=== PATIENT | male | born 1970 | race Caucasian/White ===

== ENCOUNTER 2016-04-22 08:55 | Observation (INO) | payer OTHER ==
[~2016-04-22] VITALS: Ht 208.3 cm; Wt 127.0 kg
[~2016-04-22 08:55] MED LIST: ALBUTEROL0.09 MG/A1 INH; AMOX PO; AZITHROMYCIN250 MG PO; DULOXETINE HYDR30 MG PO; K CLAV PO; KEFLEX500 MG PO; LYRICA75 MG PO; MEDROL4 M2 PO; PREDNISONE 20MG20 MG PO; PREDNISONE10 MG PO; TESSALON PERLE100 M1 PO; VENTOLIN HFA18 GM INH; ZOLPIDEM TARTRA10 MG
--- NOTE | 2016-04-22 09:04 | NUR ---
45 Y/O MALE BIBA FROM HOME C/O "SEVERE" MID ABDOMINAL PAIN SINCE APPROX 2200 LAST NIGHT. PT DENIES N/V/D BUT FATHER STATES HE KNEW SOMETHING WAS WRONG WHEN PT PATIENT DID NOT WANT DESSERT LAST NIGHT OR COFFEE THIS AM. PT WITH HX CEREBRAL ATAXIA. INTERMITTENTLY YELLING OUT ON ARRIVAL TO ED. STATES PAIN IS IN AREA OF UMBILICUS. MEDICAL STUDENT OVER TO [facility].
--- NOTE | 2016-04-22 09:15 | NUR ---
MED STUDENT TO BEDSIDE TO EVAL
--- NOTE | 2016-04-22 09:32 | ED GI/GU/ABDOMINAL COMPLAINT ---
History of Present Illness General Chief Complaint: Abdominal Pain/Flank Pain Stated Complaint: SEVERE ABD PAIN Source: patient, family, old records, EMS Exam Limitations: no limitations Vital Signs & Intake/Output Vital Signs & Intake/Output Vital Signs Date Time Temp Pulse Resp B/P Pulse O2 O2 Flow FiO2 Ox Delivery Rate 04/22 1748 97.9 118 20 147/79 96 Room Air 04/22 1701 98.9 100 20 137/72 98 Room Air 04/22 1640 114 20 142/69 95 Room Air 04/22 1517 99 Room Air 04/22 1506 98.9 110 22 149/70 100 Room Air 04/22 1055 98.9 102 18 140/76 100 Room Air 04/22 1006 99 Room Air 04/22 0900 97.1 114 16 135/72 97 Room Air Allergies Coded Allergies: NO KNOWN ALLERGIES (06/02/13) Reconcile Medications Pregabalin (Lyrica) 75 MG CAPSULE 1 CAP PO BID NERVE PAIN (Reported) Vitamin E (Dl,Tocopheryl Acet) (Vitamin E) (Unknown Strength) CAPSULE (Unknown Dose) PO DAILY SUPPLEMENT (Reported) Zolpidem Tartrate (Zolpidem Tartrate ER) 12.5 MG TAB.MPHASE 1 TAB PO QHS SLEEP (Reported) Triage Note: 45 Y/O MALE BIBA FROM HOME C/O "SEVERE" MID ABDOMINAL PAIN SINCE APPROX 2200 LAST NIGHT. PT DENIES N/V/D BUT FATHER STATES HE KNEW SOMETHING WAS WRONG WHEN PT PATIENT DID NOT WANT DESSERT LAST NIGHT OR COFFEE THIS AM. PT WITH HX CEREBRAL ATAXIA. INTERMITTENTLY YELLING OUT ON ARRIVAL TO ED. STATES PAIN IS IN AREA OF UMBILICUS. MEDICAL STUDENT OVER TO EVAL. Triage Nurses Notes Reviewed? yes Onset: Evening Duration: hour(s):, constant, continues in ED Timing: recent history Quality/Severity: aching, severe Location: periumbilical Radiation: no radiation Activities at Onset: none Prior Abdominal Problems: none Past Sexual History: Unobtainable at this time Modifying Factors: Worsens With: movement, palpation. Associated Symptoms: abdominal pain HPI: 10 hours prior to admission patient complains of progressive periumbilical pain moderate to severe nonradiating associated with decreased appetite not improved with ibuprofen. He denies fever chills nausea vomiting diarrhea chest pain cough shortness of breath headache dysuria rash bleeding. Past History Travel History Traveled to [place] past 21 day No Medical History Any Pertinent Medical History? see below for history Neurological: CEREBRAL ATAXIA EENT: NONE Cardiovascular: NONE Respiratory: NONE Gastrointestinal: NONE Hepatic: NONE Renal: NONE Musculoskeletal: MUSCULAR/FACIAL SPASMS Psychiatric: anxiety, depression Endocrine: NONE Blood Disorders: NONE Cancer(s): NONE PICK OUT HAND/Reproductive: NONE History of MRSA: No History of VRE: No History of CDIFF: No Tetanus Vaccine: 07/18/15 Surgical History Surgical History: non-contributory Psychosocial History Who do you live with Mother Services at Home None What is your primary language Greek Tobacco Use: Current Not Daily ETOH Use: denies use Illicit Drug Use: denies illicit drug use Family History Family History, If Any: Relation not specified for: No pertinent family history Hx Contributory? No Review of Systems Review of Systems Constitutional: Reports: see HPI, diaphoresis. EENTM: Reports: no symptoms. Respiratory: Reports: no symptoms. Cardiovascular: Reports: no symptoms. GI: Reports: see HPI, abdominal pain. Genitourinary: Reports: no symptoms. Musculoskeletal: Reports: no symptoms. Skin: Reports: no symptoms. Neurological/Psychological: Reports: no symptoms. Hematologic/Endocrine: Reports: no symptoms. Immunologic/Allergic: Reports: no symptoms. All Other Systems: Reviewed and Negative Physical Exam Physical Exam General Appearance: well developed/nourished, alert, awake, anxious, severe distress Head: atraumatic, normal appearance Eyes: Bilateral: normal appearance, PERRL, EOMI, normal inspection. Ears, Nose, Throat, Mouth: hearing grossly normal Neck: normal inspection, supple, full range of motion, normal alignment Respiratory: normal breath sounds, chest non-tender, no respiratory distress, quiet respiration, lungs clear Cardiovascular: regular rate/rhythm, normal peripheral pulses, norml femoral pulses equa Peripheral Pulses: 4+ carotid (R), 4+ carotid (L) Gastrointestinal: normal bowel sounds, soft, no organomegaly, tenderness ( periumbilical) Male Genitals: normal genitalia Back: normal inspection, normal range of motion Extremities: normal range of motion, no ligament instability Neurologic/Psych: no motor/sensory deficits, awake, alert, 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 No Severe Sepsis Present: No Septic Shock Present: No Progress Differential Diagnosis: appendicitis, bowel obstruction, gastritis, pancreatitis , ureterolithiasis Plan of Care: Orders Procedure Date/time Status Clear Liquid Diet 04/23 B Active OXYGEN SETUP (GEN) 04/22 1843 Active Saline Lock 04/[address] in observation 04/22 1843 Active Vital Signs 04/22 1843 Active Activity/Ambulation 04/22 1843 Active Code Status 04/22 1843 Active Patient Data 04/22 1841 Active URINALYSIS 04/22 913 Complete LIPASE 04/22 913 Complete HIGH SENSITIVITY CRP 04/22 913 Complete COMPREHENSIVE METABOLIC PANEL 04/22 913 Complete CBC WITHOUT DIFFERENTIAL 04/22 913 Complete Current Medications Sig/Steve Start time Last Medication Dose Stop Time Status Admin Ketorolac 30 MG ONCE ONE 04/22 1844 UNVr Tromethamine 04/22 1845 (Toradol) Laboratory Tests 04/22/16 0939: Anion Gap 10, Estimated GFR > 60, BUN/Creatinine Ratio 26.7 H, Glucose 93, Calcium 9.3, Total Bilirubin 0.5, AST 25, ALT 45, Alkaline Phosphatase 91, C- React Prot High Sens 2.6, Total Protein 7.3, Albumin 4.2, Globulin 3.1, Albumin/ Globulin Ratio 1.4, Lipase 58, CBC w Diff NO MAN DIFF REQ, RBC 4.59 L, MCV 88.7 , MCH 30.0, RDW 13.1, MPV 7.6, Gran % 80.3 H, Lymphocytes % 10.9 L, Monocytes % 8.4, Eosinophils % 0.1, Basophils % 0.3, Absolute Granulocytes 7.9 H, Absolute Lymphocytes 1.1 L, Absolute Monocytes 0.8 H, Absolute Eosinophils 0, Absolute Basophils 0, PUBS MCHC 33.8, Urine Color YEL, Urine Clarity CLEAR, Urine pH 6.0, Ur Specific [place] >= 1.030, Urine Protein NEG, Urine Ketones 15 H, Urine Nitrite NEG, Urine Bilirubin NEG, Urine Urobilinogen 0.2, Ur Leukocyte Esterase NEG, Ur Microscopic SEDIMENT EXAMINED, Urine RBC 5-10 H, Ur Epithelial Cells RARE, Hyaline Casts RARE H, Urine Mucus MOD H, Urine Hemoglobin SMALL H , Urine Glucose NEG Diagnostic Imaging: Viewed by Me: CT Scan, Ultrasound. Discussed w/RAD: CT Scan, Ultrasound. Radiology Impression: No focal inflammatory process or obstruction. Normal appendix. No renal or ureteral calculi. No hydronephrosis. There are 2 small calcifications in the region of the common hepatic duct. It is unclear if these represent ductal stones or vascular calcifications. There is no biliary ductal dilatation. An ultrasound, contrast-enhanced CT or MRCP may be able to clarify., Essentially nondiagnostic examination as the patient was unable to remain still secondary to pain. Additionally, the patient's body habitus and overlying bowel gas limited visualization of the abdominal organs. The liver was incompletely evaluated and the gallbladder and common bile duct were not evaluated. Initial ED EKG: none Comments: Intractable pain with continued diaphoresis. Surgery consulted Departure Departure Time of Disposition: 1700 Disposition: STILL A PATIENT Condition: Stable Clinical Impression Primary Impression: Abdominal pain Qualifiers: Abdominal location: periumbilical Qualified Code: R10.33 - Periumbilical pain Referrals: DON GOFF MD (PCP/Family) Departure Forms: Customer Survey General Discharge Information Observation Note Spoke With: DON GOFF MD Physician Advisor Notified: SUE JOHNSON,DORIAN Kirkpatrick Place Patient In: Non-ED OBS Care Area Rationale for Observation: My rational for observation is as follows intractable pain IV fluids serial lab exam ultrasound versus MRCP serial abdominal exam.
[2016-04-22 09:51] LABS: ABSOLUTE BASOPHIL COUNT 0 /CUMM (0.0-0.2); ABSOLUTE EOSINOPHIL COUNT 0 /CUMM (0.0-0.7); ABSOLUTE GRANULOCYTE CT 7.9 /CUMM (1.4-6.5); ABSOLUTE LYMPH COUNT 1.1 /CUMM (1.2-3.4); ABSOLUTE MONOCYTE COUNT 0.8 /CUMM (0.10-0.60); BASOPHIL % 0.3 % (0.0-2.0); EOSINOPHIL % 0.1 % (0-5); HEMATOCRIT 40.8 % (42-52); MEAN CORPUSCULAR HGB CONC 33.8 G/DL (33.0-37.0); MEAN CORPUSCULAR VOLUME 88.7 FL (80.0-94.0); MEAN PLATELET VOLUME 7.6 FL (7.4-10.4); PLATELET COUNT 237 /CUMM (130-400); RBC DISTRIBUTION WIDTH 13.1 % (11.5-14.5); RED BLOOD CELL CT 4.59 /CUMM (4.70-6.10); WHITE BLOOD CELL COUNT 9.9 /CUMM (4.8-10.8)
[2016-04-22 09:54] LABS: GRANULOCYTE % 80.3 % (42.2-75.2)
--- NOTE | 2016-04-22 10:02 | NUR ---
PT MEDICATED PER EMAR, CONTINUES TO COMPLAIN OF SEVERE PAIN, APPEARS VERY DIAPHORETIC, PT REPORTING HE ALWAYS HAS PAIN "BUT THIS IS SO MUCH WORSE" DENIES NAUSEA/VOMITING BUT C/O "SEVERE ACHING ABD PAIN." UNSURE OF LAST BM.
--- NOTE | 2016-04-22 10:41 | NUR ---
PT CONTINUING TO MOAN IN PAIN, MEDICATED WITH ADDTL DILAUDID PER EMAR, WILL CONTINUE TO MONITOR FOR PAIN CONTROL
--- NOTE | 2016-04-22 10:47 | NUR ---
MED STUDENT AT BEDSIDE FOR RE EVAL
--- NOTE | 2016-04-22 11:24 | NUR ---
DR VIDES TO BEDSIDE TO LUISA
--- NOTE | 2016-04-22 12:36 | NUR ---
PT WENT OVER TO CT SCAN, REFUSED SCAN ON TABLE, CAME BACK TO ROOM 5 AND WAS MEDICATED PER EMAR, NOW AGREEABLE TO SCAN - CT AWARE.
--- NOTE | 2016-04-22 13:03 | NUR ---
PT RETURNED FROM CT SCAN, APPEARS MUCH MORE COMFORTABLE AFTER ADDTL DILAUDID AND ATIVAN.
[2016-04-22] MEDS ORDERED: ZOLPIDEM TART12.5 M1 PO (13:12)
[2016-04-22] MEDS ORDERED: LYRICA75 M1 PO (13:12)
[2016-04-22] MEDS ORDERED: VITAMIN E100 UNI1 PO (13:13)
--- NOTE | 2016-04-22 13:41 | CT SCAN REPORT ---
EXAMINATION: CT ABDOMEN AND PELVIS WITHOUT CONTRAST CLINICAL INFORMATION: Periumbilical pain. COMPARISON: None. TECHNIQUE: Multidetector volumetric imaging was performed from the superior aspect of the liver through the pubic symphysis. Sagittal and coronal reformatted images were obtained on the technologist's workstation. DLP: 1311 mGy-cm FINDINGS: LUNG BASES: The visualized lung bases are unremarkable. LIVER, GALLBLADDER, AND BILIARY TREE: The liver is normal in size, shape, and attenuation. No focal hepatic lesion or biliary ductal dilatation is present. The gallbladder appears normal. There is no biliary ductal dilatation. There are 2 small calcific densities in the region of the common hepatic duct. It is unclear if these are intraductal or if they are vascular calcifications. PANCREAS: Unremarkable. SPLEEN: Unremarkable. ADRENAL GLANDS: Unremarkable. KIDNEYS AND URETERS: The kidneys are normal in size, shape, and attenuation. No hydronephrosis, hydroureter, or calculi seen. No perinephric stranding. BLADDER: Unremarkable. GASTROINTESTINAL TRACT: The small and large bowel are unremarkable. The appendix is unremarkable. ABDOMINAL WALL: No significant hernia is appreciated. LYMPH NODES: Normal. VASCULAR: There are scattered atherosclerotic calcifications. PELVIC VISCERA: Unremarkable. OSSEOUS STRUCTURES: Unremarkable. IMPRESSION: No focal inflammatory process or obstruction. Normal appendix. No renal or ureteral calculi. No hydronephrosis. There are 2 small calcifications in the region of the common hepatic duct. It is unclear if these represent ductal stones or vascular calcifications. There is no biliary ductal dilatation. An ultrasound, contrast-enhanced CT or MRCP may be able to clarify.
--- NOTE | 2016-04-22 14:29 | NUR ---
PT BACK FROM US, REPORTING HE IS CONTINUING TO HAVE PAIN, PT REQUESTING TO NOT HAVE A SHEET ON HIS STRETCHER.
--- NOTE | 2016-04-22 14:46 | NUR ---
PT CONTINUES TO DR PEEWEE POLANCO AT BEDSIDE TO RE EVAL, MOTHER OF PT BECOMING AGITATED, INFORMED OF POC AND REASON FOR WAIT.
--- NOTE | 2016-04-22 14:46 | ULTRASOUND REPORT ---
EXAMINATION: US ABDOMEN LIMITED CLINICAL INFORMATION: Questionable CBD stones demonstrated on cross-sectional imaging. COMPARISON: CT abdomen pelvis same day at 1:00 PM TECHNIQUE: Real-time imaging of the right upper quadrant abdominal viscera. Examination is severely limited and essentially nondiagnostic. The patient was unable to remain still during the examination. Additionally, patient body habitus and overlying bowel gas limited visualization of the abdominal organs. FINDINGS: PANCREAS: Visualized portions of the pancreas are grossly unremarkable. AORTA: Proximal portion of the aorta are normal in caliber. LIVER: The liver was incompletely evaluated. The examination was terminated as the patient was unable to tolerate the ultrasound probe. The gallbladder, common bile duct and right kidney were not evaluated secondary to termination of procedure. IMPRESSION: Essentially nondiagnostic examination as the patient was unable to remain still secondary to pain. Additionally, the patient's body habitus and overlying bowel gas limited visualization of the abdominal organs. The liver was incompletely evaluated and the gallbladder and common bile duct were not evaluated.
--- NOTE | 2016-04-22 15:21 | NUR ---
RECIEVED REPORT FROM SABI. ASSUMED CARE OF PT
--- NOTE | 2016-04-22 16:12 | Cons- General Surgery ---
General Information and HPI Consulting Request Date of Consult: 04/22/16 Requested By: Reason for Consult: abdominal pain Source of Information: patient, old records Exam Limitations: poor historian, cerebral ataxia History of Present Illness: This 45 year old white male with history of cerebral ataxia presents with abdominal pain that started last night, about 10 hours prior to his arrival. He reports onur-umbilical and epigastric discomfort, associated with loss of appetite. Apparently his father was concerned that the patient refused dessert and coffee this morning. No nausea or vomiting. Apparently his pain and exam limited the ability for ultrasound to give a good study. Allergies/Medications Allergies: Coded Allergies: NO KNOWN ALLERGIES (06/02/13) Home Med List: Pregabalin (Lyrica) 75 MG CAPSULE 1 CAP PO BID NERVE PAIN (Reported) Vitamin E (Dl,Tocopheryl Acet) (Vitamin E) (Unknown Strength) CAPSULE (Unknown Dose) PO DAILY SUPPLEMENT (Reported) Zolpidem Tartrate (Zolpidem Tartrate ER) 12.5 MG TAB.MPHASE 1 TAB PO QHS SLEEP (Reported) Current Medications: Current Medications Sig/Steve Start time Last Medication Dose Route Stop Time Status Admin Hydromorphone HCl 1 MG ONCE ONE 04/22 1515 DC 04/22 IV 04/22 1516 1507 Hydromorphone HCl 0 .STK-MED ONE 04/22 1457 DC .ROUTE Hydromorphone HCl 0 .STK-MED ONE 04/22 1149 DC .ROUTE Hydromorphone HCl 1 MG ONCE ONE 04/22 1145 DC / IV 04/22 1146 1200 Hydromorphone HCl 1 MG ONCE ONE 04/22 1030 DC / IV 04/22 1031 1041 Hydromorphone HCl 0 .STK-MED ONE 04/22 1022 DC .ROUTE Ketorolac 0 .STK-MED ONE 04/22 0919 DC Tromethamine .ROUTE Ketorolac 30 MG ONCE ONE 04/22 0915 DC 04/22 Tromethamine IV 04/22 0916 1002 Lorazepam 1 MG ONCE ONE 04/22 1515 DC / IV 04/22 1516 1507 Lorazepam 0 .STK-MED ONE 04/22 1457 DC .ROUTE Lorazepam 1 MG ONCE ONE 04/22 1200 DC 04/22 IV 04/22 1201 1236 Lorazepam 0 .STK-MED ONE 04/22 1149 DC .ROUTE Morphine Sulfate 0 .STK-MED ONE 04/22 0947 DC .ROUTE Morphine Sulfate 4 MG ONCE ONE 04/22 944 DC 04/22 IV 04/22 945 1002 Sodium Chloride 1,000 ML BOLUS ONE 04/22 914 DC 04/22 IV 04/22 1014 1002 Past History Medical History Neurological: CEREBRAL ATAXIA EENT: NONE Cardiovascular: NONE Respiratory: NONE Gastrointestinal: NONE Hepatic: NONE Renal: NONE Musculoskeletal: MUSCULAR/FACIAL SPASMS Psychiatric: anxiety, depression Endocrine: NONE Blood Disorders: NONE Cancer(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 Surgical History Pertinent Surgical History: non-contributory Family History Relations & Conditions If Any: Relation not specified for: No pertinent family history Psychosocial History Services at Home: None ETOH Use: denies use Illicit Drug Use: denies illicit drug use Review of Systems Review of Systems: admits: abdominal pain, loss of appetite, headache denies: nausea / vomiting Exam & Diagnostic Data Vital Signs and I&O Vital Signs Date Time Temp Pulse Resp B/P Pulse O2 O2 Flow FiO2 Ox Delivery Rate 04/22 1517 99 Room Air 04/22 1506 98.9 110 22 149/70 100 Room Air 04/22 1055 98.9 102 18 140/76 100 Room Air 04/22 1006 99 Room Air 04/22 0900 97.1 114 16 135/72 97 Room Air Intake & Output 04/22 1600 04/22 0800 04/22 0000 04/21 1600 04/21 0800 04/21 0000 Intake Total 1000 Output Total Balance 1000 Intake, IV 1000 Patient 280 lb Weight Physical Exam: General - alert. cooperative. no acute distress. Skin - warm, dry, and smooth. no rashes or jaundice appreciated. Lungs - coarse breath sounds Cardiac - s1s2. slightly tachycardic, rate 100s Abdomen - soft. normoactive bowel sounds. no acute abdominal findings. Extremities - warm bilaterally. Last 24 Hours of Labs: Laboratory Tests 04/22 938 Chemistry Sodium (137 - 145 mmol/L) 142 Potassium (3.5 - 5.1 mmol/L) 4.2 Chloride (98 - 107 mmol/L) 105 Carbon Dioxide (22 - 30 mmol/L) 26 Anion Gap (5 - 16) 10 BUN (9 - 20 mg/dL) 16 Creatinine (0.7 - 1.2 mg/dL) 0.6 L Estimated GFR (>60 ml/min) > 60 BUN/Creatinine Ratio (7 - 25 %) 26.7 H Glucose (65 - 99 mg/dL) 93 Calcium (8.4 - 10.2 mg/dL) 9.3 Total Bilirubin (0.2 - 1.3 mg/dL) 0.5 AST (17 - 59 U/L) 25 ALT (21 - 72 U/L) 45 Alkaline Phosphatase (< 127 U/L) 91 C-React Prot High Sens (1.0 - 3.0 mg/L) 2.6 Total Protein (6.3 - 8.2 g/dL) 7.3 Albumin (3.5 - 5.0 g/dL) 4.2 Globulin (1.9 - 4.2 gm/dL) 3.1 Albumin/Globulin Ratio (1.1 - 2.2 %) 1.4 Lipase (23 - 300 U/L) 58 Hematology CBC w Diff NO MAN DIFF REQ WBC (4.8 - 10.8 /CUMM) 9.9 RBC (4.70 - 6.10 /CUMM) 4.59 L Hgb (14.0 - 18.0 G/DL) 13.8 L Hct (42 - 52 %) 40.8 L MCV (80.0 - 94.0 FL) 88.7 MCH (27.0 - 31.0 PG) 30.0 RDW (11.5 - 14.5 %) 13.1 Plt Count (130 - 400 /CUMM) 237 MPV (7.4 - 10.4 FL) 7.6 Gran % (42.2 - 75.2 %) 80.3 H Lymphocytes % (20.5 - 51.1 %) 10.9 L Monocytes % (1.7 - 9.3 %) 8.4 Eosinophils % (0 - 5 %) 0.1 Basophils % (0.0 - 2.0 %) 0.3 Absolute Granulocytes (1.4 - 6.5 /CUMM) 7.9 H Absolute Lymphocytes (1.2 - 3.4 /CUMM) 1.1 L Absolute Monocytes (0.10 - 0.60 /CUMM) 0.8 H Absolute Eosinophils (0.0 - 0.7 /CUMM) 0 Absolute Basophils (0.0 - 0.2 /CUMM) 0 PUBS MCHC (33.0 - 37.0 G/DL) 33.8 Urines Urine Color (YEL,AMB,STR) YEL Urine Clarity (CLEAR) CLEAR Urine pH (5.0 - 8.0) 6.0 Ur Specific Dalton (1.001 - 1.035) >= 1.030 Urine Protein (NEG,<30 MG/DL) NEG Urine Ketones (NEG) 15 H Urine Nitrite (NEG) NEG Urine Bilirubin (NEG) NEG Urine Urobilinogen (0.1 - 1.0 EU/dl) 0.2 Ur Leukocyte Esterase (NEG) NEG Ur Microscopic SEDIMENT EXAMINED Urine RBC (0 - 5 /HPF) 5-10 H Ur Epithelial Cells (NONE,FEW) RARE Hyaline Casts (0/LPF) RARE H Urine Mucus (FEW,NONE) MOD H Urine Hemoglobin (NEG) SMALL H Urine Glucose (N MG/DL) NEG Imaging Results: EXAMINATION: CT ABDOMEN AND PELVIS WITHOUT CONTRAST CLINICAL INFORMATION: Periumbilical pain. COMPARISON: None. TECHNIQUE: Multidetector volumetric imaging was performed from the superior aspect of the liver through the pubic symphysis. Sagittal and coronal reformatted images were obtained on the technologist's workstation. DLP: 1311 mGy-cm FINDINGS: LUNG BASES: The visualized lung bases are unremarkable. LIVER, GALLBLADDER, AND BILIARY TREE: The liver is normal in size, shape, and attenuation. No focal hepatic lesion or biliary ductal dilatation is present. The gallbladder appears normal. There is no biliary ductal dilatation. There are 2 small calcific densities in the region of the common hepatic duct. It is unclear if these are intraductal or if they are vascular calcifications. PANCREAS: Unremarkable. SPLEEN: Unremarkable. ADRENAL GLANDS: Unremarkable. KIDNEYS AND URETERS: The kidneys are normal in size, shape, and attenuation. No hydronephrosis, hydroureter, or calculi seen. No perinephric stranding. BLADDER: Unremarkable. GASTROINTESTINAL TRACT: The small and large bowel are unremarkable. The appendix is unremarkable. ABDOMINAL WALL: No significant hernia is appreciated. LYMPH NODES: Normal. VASCULAR: There are scattered atherosclerotic calcifications. PELVIC VISCERA: Unremarkable. OSSEOUS STRUCTURES: Unremarkable. IMPRESSION: No focal inflammatory process or obstruction. Normal appendix. No renal or ureteral calculi. No hydronephrosis. There are 2 small calcifications in the region of the common hepatic duct. It is unclear if these represent ductal stones or vascular calcifications. There is no biliary ductal dilatation. An ultrasound, contrast-enhanced CT or MRCP may be able to clarify. DICTATED BY: TRACY SOL MD DATE/TIME DICTATED:04/22/161320 WIDE AREA NETWORK ENGINEER:HORACIO DATE/TIME TRANSCRIBED:04/22/161320 Other Results: EXAM TYPE: US - US-LIMITED ABDOMEN EXAMINATION: US ABDOMEN LIMITED CLINICAL INFORMATION: Questionable CBD stones demonstrated on cross-sectional imaging. COMPARISON: CT abdomen pelvis same day at 1:00 PM TECHNIQUE: Real-time imaging of the right upper quadrant abdominal viscera. Examination is severely limited and essentially nondiagnostic. The patient was unable to remain still during the examination. Additionally, patient body habitus and overlying bowel gas limited visualization of the abdominal organs. FINDINGS: PANCREAS: Visualized portions of the pancreas are grossly unremarkable. AORTA: Proximal portion of the aorta are normal in caliber. LIVER: The liver was incompletely evaluated. The examination was terminated as the patient was unable to tolerate the ultrasound probe. The gallbladder, common bile duct and right kidney were not evaluated secondary to termination of procedure. IMPRESSION: Essentially nondiagnostic examination as the patient was unable to remain still secondary to pain. Additionally, the patient's body habitus and overlying bowel gas limited visualization of the abdominal organs. The liver was incompletely evaluated and the gallbladder and common bile duct were not evaluated. DICTATED BY: KECIA YUSUF MD DATE/TIME DICTATED:04/22/161435 WIDE AREA NETWORK ENGINEER:HORACIO DATE/TIME TRANSCRIBED:04/22/161435 Assessment/Plan Assessment/Plan This 45 year old white male with known cerebral ataxia brought in by family for abdominal pain that started last night, unable to tolerate an ultrasound study supposedly limited by pain, with no lab abnormalities other than evidence of dehydration, but with CT scan findings possibly suggesting ductal stones, however no biliary ductal dilation currently exam in unimpressive iv fluids for dehydration serial exams repeat labs in the morning and may consider repeat ultrasound study or mrcp if labs abnormal or if any changes in physical exam may consider holding narcotics for purpose of exam reliability no indication for acute surgical intervention at this time will d/w Consult Acknowledgment - Thank you for your consult request.
--- NOTE | 2016-04-22 17:04 | NUR ---
PT AWAKE, ALERT. ASKING FOR MORE PAIN MEDICINE. SEEN BY DR HERNANDEZ.
--- NOTE | 2016-04-22 18:55 | NUR ---
PT STATES NO RELIEF FROM PAIN WITH IV TYLENOL STATES PAIN IS A 6. REPOSITIONED WITH ASSIST OF FAMILY. SAT ON EDGE OF BED FOR A WHILE. NOW LAYING BACK ON STRETCHER. IV PULLED OUT DURING THIS ACTIVITY.
--- NOTE | 2016-04-22 19:39 | History & Physical ---
General Information and HPI Source of Information: patient, old records Exam Limitations: poor historian, cerebral ataxia Allergies/Medications Allergies: Coded Allergies: NO KNOWN ALLERGIES (06/02/13) Home Med list Pregabalin (Lyrica) 75 MG CAPSULE 1 CAP PO BID NERVE PAIN (Reported) Vitamin E (Dl,Tocopheryl Acet) (Vitamin E) (Unknown Strength) CAPSULE (Unknown Dose) PO DAILY SUPPLEMENT (Reported) Zolpidem Tartrate (Zolpidem Tartrate ER) 12.5 MG TAB.MPHASE 1 TAB PO QHS SLEEP (Reported) Past History Travel History Traveled to [place] past 21 day No Medical History Neurological: CEREBRAL ATAXIA EENT: NONE Cardiovascular: NONE Respiratory: NONE Gastrointestinal: NONE Hepatic: NONE Renal: NONE Musculoskeletal: MUSCULAR/FACIAL SPASMS Psychiatric: anxiety, depression Endocrine: NONE Blood Disorders: NONE Cancer(s): NONE 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
--- NOTE | 2016-04-22 19:53 | NUR ---
PT HAS ROOM #815-1
--- NOTE | 2016-04-22 20:00 | History & Physical ---
ALICE BEE 04/22/16 2000: General Information and HPI Source of Information: patient, old records Exam Limitations: poor historian, cerebral ataxia Allergies/Medications Allergies: Coded Allergies: NO KNOWN ALLERGIES (06/02/13) Home Med list Pregabalin (Lyrica) 75 MG CAPSULE 1 CAP PO BID NERVE PAIN (Reported) Vitamin E (Dl,Tocopheryl Acet) (Vitamin E) (Unknown Strength) CAPSULE (Unknown Dose) PO DAILY SUPPLEMENT (Reported) Zolpidem Tartrate (Zolpidem Tartrate ER) 12.5 MG TAB.MPHASE 1 TAB PO QHS SLEEP (Reported) Past History Travel History Traveled to [place] past 21 day No Medical History Neurological: CEREBRAL ATAXIA EENT: NONE Cardiovascular: NONE Respiratory: NONE Gastrointestinal: NONE Hepatic: NONE Renal: NONE Musculoskeletal: MUSCULAR/FACIAL SPASMS Psychiatric: anxiety, depression Endocrine: NONE Blood Disorders: NONE Cancer(s): NONE GUIDE ALPINE/Reproductive: NONE History of MRSA: No History of VRE: No History of CDIFF: No Tetanus Vaccine: 07/18/15 Surgical History Surgical History: non-contributory Past Family/Social History Family History Relations & Conditions if any Relation not specified for: No pertinent family history Psychosocial History Services at Home: None ETOH Use: denies use Illicit Drug Use: denies illicit drug use Sexual History Past Sexual History Unobtainable at this time Core Measures/Miscellaneous Severe Sepsis Severe Sepsis Present: No Septic Shock Septic Shock Present: No
--- NOTE | 2016-04-22 20:05 | History & Physical ---
DIONICIO JOHNSON,YOAN 04/22/162004: General Information and HPI MD Statement: I have seen and personally examined ANDER ALAMO and documented this H&P. The patient is a 45 year old M who presented with a patient stated chief complaint of abdominal pain. Source of Information: patient, old records Exam Limitations: poor historian, cerebral ataxia History of Present Illness: Mr Alamo is a 45-year-old gentleman with past medical history of cerebral ataxia and neurological dificits who presented to the emergency department [facility] due to worsening abdominal pain. The patient's mother Susanne provided much of the clinical history. Pain began yesterday evening approximately 8 PM. Pain was rated at a 10 out of 10 in severity. Described as sudden and sharp pain. Located around the periumbilical area, did not radiate anywhere. Did not take any thing for abdominal pain. The patient also expressed a headache at the time of the clinical encounter, states this is lilkely related no PO intake over the course of the day. Over the last 24 hours, patient has been complaining of diaphoresis, generalized weakness, lethargy, decreased appetite, and a mild cough. Patient denies any vomiting, nausea, chills Patient lives at home with his mother and sister. Allergies/Medications Allergies: Coded Allergies: NO KNOWN ALLERGIES (06/02/13) Home Med list Dicyclomine Hydrochloride (Bentyl) 10 MG CAPSULE 1 CAP PO TID SPASMS Polyethylene Glycol 3350 (Miralax) 17 GRAM/DOSE POWDER 17 GM PO DAILY PRN CONSTIPATION Pregabalin (Lyrica) 75 MG CAPSULE 1 CAP PO BID NERVE PAIN (Reported) Sennosides/Docusate Sodium (Senna S Tablet) 8.6 MG-50 MG TABLET 1 TAB PO BID PRN CONSTIPATION Vitamin E (Dl,Tocopheryl Acet) (Vitamin E) (Unknown Strength) CAPSULE (Unknown Dose) PO DAILY SUPPLEMENT (Reported) Zolpidem Tartrate (Zolpidem Tartrate ER) 12.5 MG TAB.MPHASE 1 TAB PO QHS SLEEP (Reported) Compliance With Home Meds: GOOD Past History Travel History Traveled to [place] past 21 day No Medical History Neurological: CEREBRAL ATAXIA EENT: NONE Cardiovascular: NONE Respiratory: NONE Gastrointestinal: NONE Hepatic: NONE Renal: NONE Musculoskeletal: MUSCULAR/FACIAL SPASMS Psychiatric: anxiety, depression Endocrine: NONE Blood Disorders: NONE Cancer(s): NONE 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 Home Who Do You Live With? parent Services at Home: None Primary Language: Ghanaian ETOH Use: denies use Illicit Drug Use: denies illicit drug use Functional Ability ADLs Independent: dressing, eating, toileting, bathing. Ambulation: walker IADLs Needs Assist: shopping, housework, finances, food prep, telephone, transportation, medication admin. Sexual History Past Sexual History Unobtainable at this time Review of Systems Review of Systems Constitutional: Reports: malaise, weakness. Denies: chills, diaphoresis, fever. Cardiovascular: Denies: chest pain, edema, orthopena, palpitations. Respiratory: Reports: cough. Denies: hemoptysis, orthopnea, short of breath, sputum production, stridor. GI: Reports: abdominal pain. Denies: bloating, constipation, diarrhea, distention, nausea, changes in stool, vomiting. Genitourinary: Denies: discharge, dysuria, frequency, hematuria, hesitation. Musculoskeletal: Denies: back pain, gout, joint pain, joint swelling. Skin: Denies: change in skin color, change in hair/nails, dryness, erythema. Exam & Diagnostic Data Last 24 Hrs of Vital Signs/I&O Vital Signs Date Time Temp Pulse Resp B/P Pulse O2 O2 Flow FiO2 Ox Delivery Rate 04/22 2113 98.1 115 22 144/84 96 Room Air 04/223 98.1 113 20 145/83 97 Room Air 04/22 2037 Room Air 04/22 1954 98.7 113 20 144/79 96 Room Air 04/22 1748 97.9 118 20 147/79 96 Room Air 04/22 1701 98.9 100 20 137/72 98 Room Air 04/22 1640 114 20 142/69 95 Room Air 04/22 1517 99 Room Air 04/22 1506 98.9 110 22 149/70 100 Room Air 04/22 1055 98.9 102 18 140/76 100 Room Air 04/22 1006 99 Room Air 04/22 0900 97.1 114 16 135/72 97 Room Air Intake & Output 04/22 1600 04/22 0800 02 0000 Intake Total 1000 Output Total Balance 1000 Intake, IV 1000 Patient 127.006 kg Weight Physical Exam General Appearance Alert, Oriented X3, No Acute Distress Lymphatic Cervical nl Cardiovascular Normal S1, Normal S2, No Murmurs Lungs Expratory Rhonchi Abdomen Soft, No Tenderness, Hyperactrive Bowel Sounds Neurological Strength at 5/5 X4 Ext, Cranial Nerves 3-12 NL Extremities No Edema Last 24 Hrs of Labs/Anthony: Laboratory Tests 04/22/16 0939: Anion Gap 10, Estimated GFR > 60, BUN/Creatinine Ratio 26.7 H, Glucose 93, Calcium 9.3, Total Bilirubin 0.5, AST 25, ALT 45, Alkaline Phosphatase 91, C- React Prot High Sens 2.6, Total Protein 7.3, Albumin 4.2, Globulin 3.1, Albumin/ Globulin Ratio 1.4, Lipase 58, CBC w Diff NO MAN DIFF REQ, RBC 4.59 L, MCV 88.7 , MCH 30.0, RDW 13.1, MPV 7.6, Gran % 80.3 H, Lymphocytes % 10.9 L, Monocytes % 8.4, Eosinophils % 0.1, Basophils % 0.3, Absolute Granulocytes 7.9 H, Absolute Lymphocytes 1.1 L, Absolute Monocytes 0.8 H, Absolute Eosinophils 0, Absolute Basophils 0, PUBS MCHC 33.8, Urine Color YEL, Urine Clarity CLEAR, Urine pH 6.0, Ur Specific Dixie >= 1.030, Urine Protein NEG, Urine Ketones 15 H, Urine Nitrite NEG, Urine Bilirubin NEG, Urine Urobilinogen 0.2, Ur Leukocyte Esterase NEG, Ur Microscopic SEDIMENT EXAMINED, Urine RBC 5-10 H, Ur Epithelial Cells RARE, Hyaline Casts RARE H, Urine Mucus MOD H, Urine Hemoglobin SMALL H , Urine Glucose NEG Diagnostic Data EKG Results No EKG Assessment/Plan Assessment: This is a 45-year-old gentleman who presents to the emergency department [facility] due to worsening abdominal pain. #Abdominal Pain Patient was assessed by surgery team in the emergency department who stated that he is currently not in any dire need for any surgical intervention. Avoid Narcotic Pain medications MRCP in AM for clarification of calcifications in the common hepatic duct, rule out choledocholithiasis. Consider GI consultation in AM if symptoms worsen. Keep nothing by mouth for now. Hydrate with IV normal fluids normal saline 1000 mL 100 mL per hour BEP in a.m. Consider bowel regimen, for symptomatic relief. Dicyclomine for abdominal cramping. #Cough Tessalon Pearles for symptomatic relief C-Xray to rule out worsening consolidation. Lower respiratory cultures #Diet: NPO, pain worsens consider additional procedures and no imaging. #DVT Prophylaxis Heparin #Code Full Code As Ranked By This Provider Problem List: 1. Pain 2. Abdominal pain Qualifiers Abdominal location: periumbilical Qualified Code: R10.33 - Periumbilical pain 3. Insomnia 4. Patient is full code Core Measures/Miscellaneous Acute Coronary Syndrome ACS Diagnosis: No Cerebrovascular Accident CVA/TIA Diagnosis: No Congestive Heart Failure CHF Diagnosis: No Venous Thromboembolism VTE Risk Factors: Age > 40 VTE Prophylaxis Ordered Inpt: Pharm- Heparin No Mech VTE prophylaxis d/t: No contraindications No VTE Pharm Prophylaxis d/t: No contraindications VTE Diagnosis: No VTE Type: NONE VTE Confirmed by (Test): NONE Severe Sepsis Severe Sepsis Present: No Septic Shock Septic Shock Present: No Miscellaneous Documentation Attending Case Discussed With: Dr Goff Primary Care Physician: DON GOFF MD Patient sees these Specialists NA Level of Patient Care: General Medicine RITCHIE PRATT 04/22/162046: Resident Review Statement Resident Statement: examined this patient, discussed with campus interviews intern, agreed with campus interviews intern, discussed with family, reviewed EMR data (avail), discussed with nursing , discussed with case mgmt, reviewed images, amended to note Other Findings: 45 years old man was presnted at ED complaining of severe abdominal pain. Most of the HPI was obtained from the mother. Patient has been at normal state of health up until last night, about 10 hours ago, when he suddenly developed a first-time, severe, sharp, intermittent (colicky) periumbilical abdominal pain. Pain is not associated with loss of appetite but no report of nausea, vomitting, diarrhea, URI/ symptoms. 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 ROS: complains of epigastric/periumbilical abdominal pain. Denies any Cp palpitation, feeling nausious, PH/EX: HEEN: mocous membranes are dry; CV: S1S2 no murmur, lungs : clear, Abd: non-distended, normo-active BS, mild generalized abdominal pain slightly worst in epigastric and periumbilical area, no gaurdin, no rebound. EXt: wnl. Assessment Sudden onset sharp periumbilical pain in a 45 years old man. DDx: PUD (gastric ulcer vs DU), pacreatitis, cholecystitis possibly 2/2 choledocholithiasis, gastroenteritis, bowel obstruction, renal stones. The acuity of onset and risk of risk factors and lab findings argue against pancreatitis, and lowr lobe pnumonia (no respiratory compromise), metabolic causes of abdominal pain such as heypercalcemia and DKA are not present. There is ?? finding in abdminal CT scan, which is suggestive of possible billiary stones or aterosclerosis. There is no evidence of liver envolvement (normal LFT) , ALP is also normal. No renal stones are present in abdominal CT. There is no dilation of the CHD. Surgical consul was done. Surgery team, at the moment, are not convinced that this is an acute abdomen, which requires surgical intervention. Plan -admit to [facility] for observation -NPO -IV fluids; Nl saline 1000 ml Q8 -pain management: continue his Lyrica and add acetaminophen and hyocynamide -avoid narcotic pain medication -Obtain MRCP tomorrow -repeat labs in the am -serial abdominal exam; any major change inform surgery with DVT prophylaxis heparin 5000U Q8SC pain management-as above ОЛЕГ GOFF MD,[facility] 04/23/16 0950: Attending MD Review Statement Attending Statement Attending MD Statement: examined this patient, discuss w/resident/PA/AUTO BODY CUSTOMIZER, agreed w/resident/PA/AUTO BODY CUSTOMIZER, discussed with family, reviewed EMR data (avail), discussed with nursing, discussed with case mgmt, reviewed images, amended to note Attending Assessment/Plan: Sig pain now resolved Etiology unclear Pain is better now Will obtain mrcp this am IF stable will dc
[2016-04-22 21:14] VITALS: BP 144/84
[2016-04-23 06:16] VITALS: BP 146/80
--- NOTE | 2016-04-23 07:00 | NUR ---
0100 PT ANXIOUS.ASKING FOR WATER CONSTANTLY.INSTRUMENT MAINTENANCE SUPERVISOR CALLED & SEEN BY INSTRUMENT MAINTENANCE SUPERVISOR WITH NEW ORDER.NPO CAN HAVE WATER & ICE CHIPS.PT HAS BEEN ASKING WATER ALL NIGHT LONG.
[2016-04-23 08:06] LABS: ABSOLUTE BASOPHIL COUNT 0 /CUMM (0.0-0.2); ABSOLUTE EOSINOPHIL COUNT 0.1 /CUMM (0.0-0.7); ABSOLUTE GRANULOCYTE CT 4.7 /CUMM (1.4-6.5); ABSOLUTE LYMPH COUNT 1.8 /CUMM (1.2-3.4); ABSOLUTE MONOCYTE COUNT 0.8 /CUMM (0.10-0.60); BASOPHIL % 0.5 % (0.0-2.0); EOSINOPHIL % 0.7 % (0-5); GRANULOCYTE % 62.9 % (42.2-75.2); HEMATOCRIT 36.4 % (42-52); MEAN CORPUSCULAR HGB 30.2 PG (27.0-31.0); MEAN CORPUSCULAR HGB CONC 33.9 G/DL (33.0-37.0); MEAN PLATELET VOLUME 7.7 FL (7.4-10.4); PLATELET COUNT 195 /CUMM (130-400); RBC DISTRIBUTION WIDTH 13.6 % (11.5-14.5); RED BLOOD CELL CT 4.09 /CUMM (4.70-6.10); WHITE BLOOD CELL COUNT 7.5 /CUMM (4.8-10.8)
--- NOTE | 2016-04-23 09:55 | PN- Att Addend ---
Attending Addendum Attending Brief Note DOing better Pain resolved afebrile all labs and data reviewed Current Medications Sig/Steve Start time Last Medication Dose Route Stop Time Status Admin Acetaminophen 650 MG Q4P PRN 04/22 204 AC 04/23 PO 0611 Acetaminophen 0 .STK-MED ONE 04/22 1707 DC IV Acetaminophen 1,000 MG ONCE ONE 04/22 1700 DC 04/22 IV 04/22 1701 1713 Alprazolam 0.25 MG ONCE ONE 04/23 0845 DC PO 04/23 0846 Bisacodyl 5 MG DAILY 04/23 1000 AC PO Hydromorphone HCl 1 MG ONCE ONE 04/22 1515 DC 04/22 IV 04/22 1516 1507 Hydromorphone HCl 0 .STK-MED ONE 04/22 1457 DC .ROUTE Hydromorphone HCl 0 .STK-MED ONE 04/22 1149 DC .ROUTE Hydromorphone HCl 1 MG ONCE ONE 04/22 1145 DC 04/22 IV 04/22 1146 1200 Hydromorphone HCl 1 MG ONCE ONE 04/22 1030 DC 04/22 IV 04/22 1031 1041 Hydromorphone HCl 0 .STK-MED ONE 04/22 1022 DC .ROUTE Hyoscyamine 0.125 MG Q4 HRS NEEDED PRN 04/22 204 AC 04/22 PO 2229 Ketorolac 0 .STK-MED ONE 04/22 1909 DC Tromethamine .ROUTE Ketorolac 30 MG ONCE ONE 04/22 1845 DC 04/22 Tromethamine IV 04/22 1846 1917 Lorazepam 1 MG ONCE ONE 04/23 0915 DC 04/23 IV 04/23 0916 0930 Lorazepam 1 MG ONCE ONE 04/22 1515 DC / IV 04/22 1516 1507 Lorazepam 0 .STK-MED ONE 04/22 1457 DC .ROUTE Lorazepam 1 MG ONCE ONE 04/22 1200 DC 04/22 IV 04/22 1201 1236 Lorazepam 0 .STK-MED ONE 04/22 1149 DC .ROUTE Polyethylene Glycol 17 GM DAILY 04/23 1000 AC PO Pregabalin 75 MG BID 04/22 2200 AC 04/22 PO 2228 Sodium Chloride 1,000 ML Q8H 04/22 2045 AC 04/23 IV 0615 Sodium Chloride 1,000 ML BOLUS ONE 04/22 914 DC 04/22 IV 04/22 1014 1002 Zolpidem Tartrate 10 MG AT BEDTIME 04/22 2199 AC 04/22 PO 2228 Vital Signs Date Time Temp Pulse Resp B/P Pulse O2 O2 Flow FiO2 Ox Delivery Rate 04/23 615 98.6 105 20 146/80 95 Room Air 04/22 2229 4.0 04/22 2113 98.1 115 22 144/84 96 Room Air 04/22 204 98.1 113 20 145/83 97 Room Air 04/22 2037 Room Air 04/22 1954 98.7 113 20 144/79 96 Room Air 04/22 1748 97.9 118 20 147/79 96 Room Air 04/22 1701 98.9 100 20 137/72 98 Room Air 04/22 1640 114 20 142/69 95 Room Air 04/22 1517 99 Room Air 04/22 1506 98.9 110 22 149/70 100 Room Air 04/22 1055 98.9 102 18 140/76 100 Room Air 04/22 1006 99 Room Air 04/22 0900 97.1 114 16 135/72 97 Room Air Laboratory Tests 04/23/16 0605: Anion Gap 8, Estimated GFR > 60, BUN/Creatinine Ratio 24.0, Total Bilirubin 0.6, Direct Bilirubin 0.4, AST 67 H, ALT 51, Alkaline Phosphatase 71, Total Protein 6.2 L, Albumin 3.5, CBC w Diff NO MAN DIFF REQ, RBC 4.09 L, MCV 89.0, MCH 30.2 , RDW 13.6, MPV 7.7, Gran % 62.9, Lymphocytes % 24.6, Monocytes % 11.3 H, Eosinophils % 0.7, Basophils % 0.5, Absolute Granulocytes 4.7, Absolute Lymphocytes 1.8, Absolute Monocytes 0.8 H, Absolute Eosinophils 0.1, Absolute Basophils 0, PUBS MCHC 33.9 Orders Procedure Date/time Status Nothing by Mouth 04/23 D Active Nothing by Mouth 04/23 B Active HEPATIC FUNCTION PANEL 04/23 604 Complete CBC WITHOUT DIFFERENTIAL 04/23 599 Complete BASIC ELECTROLYTES PLUS BUN&CR 04/23 599 Complete Lab Add-on Test 04/23 UNK Active MRI-ABDOMEN 04/23 UNK Active Pain Treatment and Response 04/22 2209 Active Teach/Educate 04/22 2046 Active Nutritional Intake, Monitor 04/22 2046 Active Isolation 04/22 2046 Active Patient Care Conference 04/22 2046 Active Pathway - chart 04/22 2035 Active House Staff 04/22 2035 Active Code Status 04/22 2035 Active OXYGEN SETUP (GEN) 04/22 1843 Active Saline Lock 04/[address] in observation 04/22 1843 Active Vital Signs 04/22 1843 Active Activity/Ambulation 04/22 1843 Active Code Status 04/22 1843 Complete Patient Data 04/22 184 Active Intake & Output 04/22 1004 Active URINALYSIS 04/22 913 Complete LIPASE 04/22 913 Complete HIGH SENSITIVITY CRP 04/22 913 Complete COMPREHENSIVE METABOLIC PANEL 04/22 913 Complete CBC WITHOUT DIFFERENTIAL 04/22 913 Complete VTE Mechanical Prophylaxis 04/22 UNK Active This is a 45-year-old unfortunate gentleman who is here with sig spasmodic abd pain. 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 He has a chronic cough and has sig neuropathic leg pain on lyrica Abd pain better CBD stones less likely needs mrcp PLan MRCp After mrcp agg bowel regimen INcrease activity IF pain is better and if mrcp is neg can be dcd on po bentyl, miralax, senna and docusate along with out pt meds Avoid narcotics Will follow
--- NOTE | 2016-04-23 12:53 | PN- Housestaff ---
Subjective Follow-up For: Abdominal pain Subjective: Patient is seen and examined at bedside. She appears moderately drowsy status post benzodiazepine due to the MRCP. He however does not endorse any increasing abdominal pain, no nausea, no vomiting, no fever, chills or diarrhea. Review of Systems Constitutional: Reports: no symptoms. Objective Last 24 Hrs of Vital Signs/I&O Vital Signs Date Time Temp Pulse Resp B/P Pulse O2 O2 Flow FiO2 Ox Delivery Rate 04/23 799 Room Air 04/23 615 98.6 105 20 146/80 95 Room Air 04/22 2229 4.0 04/22 2113 98.1 115 22 144/84 96 Room Air 04/22 2042 98.1 113 20 145/83 97 Room Air 04/22 203 Room Air Intake & Output 04/23 1600 04/23 0000 Intake Total 900 1600 Output Total 600 400 Balance 300 1200 Intake, IV 600 1000 Intake, Oral 300 600 Number 0 Bowel Movements Output, Urine 600 400 Patient 127.006 kg Weight Physical Exam General Appearance: Alert Other Physical Findings: Lymphatic Cervical nl Cardiovascular Normal S1, Normal S2, No Murmurs Lungs Expratory Rhonchi Abdomen Soft, No Tenderness, Hyperactrive Bowel Sounds Neurological Strength at 5/5 X4 Ext, Cranial Nerves 3-12 NL Extremities No Edema Current Medications: Current Medications Sig/Steve Start time Last Medication Dose Route Stop Time Status Admin Acetaminophen 650 MG .STK-MED ONE 04/23 0345 DC PO 04/23 0346 Acetaminophen 650 MG Q4P PRN 04/22 2044 DCD 04/23 PO 0611 Alprazolam 0.25 MG ONCE ONE 04/23 0845 DC PO 04/23 0846 Bisacodyl 5 MG DAILY 04/23 1000 DCD 04/23 PO 1145 Hyoscyamine 0.125 MG Q4 HRS NEEDED PRN 04/22 2044 DCD 04/22 PO 2229 Lorazepam 1 MG ONCE ONE 04/23 0915 DC 04/23 IV 04/23 0916 0930 Patient Medication 1 ED ONE ONE 04/23 1400 DC Teaching ED 04/23 1401 Polyethylene Glycol 17 GM DAILY 04/23 1000 DCD 04/23 PO 1145 Pregabalin 75 MG BID 04/22 2200 DCD 04/23 PO 1145 Sodium Chloride 1,000 ML Q8H 04/22 2044 DCD 04/23 IV 0615 Zolpidem Tartrate 10 MG AT BEDTIME 04/22 2199 DCD 04/22 PO 2228 Last 24 Hrs of Lab/Anthony Results Last 24 Hrs of Labs/Mics: Laboratory Tests 04/23/16 0605: Anion Gap 8, Estimated GFR > 60, BUN/Creatinine Ratio 24.0, Total Bilirubin 0.6, Direct Bilirubin 0.4, AST 67 H, ALT 51, Alkaline Phosphatase 71, Total Protein 6.2 L, Albumin 3.5, CBC w Diff NO MAN DIFF REQ, RBC 4.09 L, MCV 89.0, MCH 30.2 , RDW 13.6, MPV 7.7, Gran % 62.9, Lymphocytes % 24.6, Monocytes % 11.3 H, Eosinophils % 0.7, Basophils % 0.5, Absolute Granulocytes 4.7, Absolute Lymphocytes 1.8, Absolute Monocytes 0.8 H, Absolute Eosinophils 0.1, Absolute Basophils 0, PUBS MCHC 33.9 Orders Radiology Findings: SERVICE DATE: 04/23/16- EXAM TYPE: MRI - MRI-ABDOMEN EXAMINATION: MR ABDOMEN WITHOUT CONTRAST/MRCP CLINICAL INFORMATION: Abdominal pain. Suspicion of choledocholithiasis on previous CT scan of the abdomen from 04/22/2016. COMPARISON: Right upper quadrant ultrasound dated 04/22/[address] scan of the abdomen and pelvis dated 04/22/2016. TECHNIQUE: An MRI scan of the abdomen was performed using multiple imaging sequences and imaging planes. As per the MRCP protocol, heavily T2-weighted 3-D high-resolution MRCP sequences were obtained in the coronal plane along with thin and thick slab coronal images. Coronal MIP reconstructions were obtained on an independent workstation. The study is limited due to motion artifact on all sequences and patient's inability to tolerate repeat scanning. FINDINGS: GALLBLADDER, BILIARY TREE: Gallbladder is well distended and unremarkable with no evidence of gallstones, wall thickening or pericholecystic fluid. No intra or extrahepatic ductal dilatation is seen. There are no filling defects seen within the common hepatic duct. The calcification seen on CT scan may have either passed or more likely a vascular in etiology. Evaluation is, however, limited due to motion artifact on all images and incomplete images obtained. Common bile duct is normal, measuring 0.3 cm in diameter. LIVER: Normal size and signal. No focal mass. PANCREAS: Unremarkable. Pancreatic duct normal in caliber (0.2 cm) with no variant ductal anatomy appreciated. No peripancreatic collection or focal pancreatic mass. SPLEEN: Normal. ADRENAL GLANDS AND KIDNEYS: Both adrenal glands normal. Kidneys bilaterally symmetric. There may be a few tiny parapelvic cysts. Kidneys otherwise unremarkable. BOWEL LOOPS: Unremarkable to the extent included. LYMPHOVASCULAR STRUCTURES: Abdominal aorta normal in caliber. No periaortic collections. No significant abdominal adenopathy or free fluid collection. BONES: Unremarkable. IMPRESSION: Limited evaluation. However, the biliary tree is normal in caliber and no evidence of choledocholithiasis is seen, including in the common hepatic duct, where on CT scan small calcifications were suspected. These calcifications may be vascular in etiology or less likely may have represented biliary calculi, which have passed in the interim. DICTATED BY: TERA JOHNSON,TOI Lopez Assessment/Plan Assessment: This 45 year old white male with history of cerebral ataxia presents with abdominal pain that started last night, about 10 hours prior to his arrival. He reports onur-umbilical and epigastric discomfort, associated with loss of appetite. She was also examined by the surgical team while he was at the ED and evaluation was a patient did not require any surgical intervention as of now. Assessment and plan #Abdominal pain Patient presentation of acute abdomen, suggestive of multiple etiologies including biliary, pancreatitis or peptic ulcer. Initial radiological finding CT abdomen pelvis and ultrasound was inconclusive due to patient's body habitus and not able to fully cooperate. Will await MRCP results and if unremarkable patient will be cleared for discharge. She will benefit from getting constipation relieving medication upon discharge. Plan Will await MRCP results and discharge if unremarkable. Problem List: 1. Abdominal pain Pain Ratin Pain Location: Epigastric Pain Goal: Remain pain free Pain Plan: Will use pain pathway Tomorrow's Labs & Rationales: none
--- NOTE | 2016-04-23 13:39 | MRI REPORT ---
EXAMINATION: MR ABDOMEN WITHOUT CONTRAST/MRCP CLINICAL INFORMATION: Abdominal pain. Suspicion of choledocholithiasis on previous CT scan of the abdomen from 04/22/2016. COMPARISON: Right upper quadrant ultrasound dated 04/22/[address] scan of the abdomen and pelvis dated 04/22/2016. TECHNIQUE: An MRI scan of the abdomen was performed using multiple imaging sequences and imaging planes. As per the MRCP protocol, heavily T2-weighted 3-D high-resolution MRCP sequences were obtained in the coronal plane along with thin and thick slab coronal images. Coronal MIP reconstructions were obtained on an independent workstation. The study is limited due to motion artifact on all sequences and patient's inability to tolerate repeat scanning. FINDINGS: GALLBLADDER, BILIARY TREE: Gallbladder is well distended and unremarkable with no evidence of gallstones, wall thickening or pericholecystic fluid. No intra or extrahepatic ductal dilatation is seen. There are no filling defects seen within the common hepatic duct. The calcification seen on CT scan may have either passed or more likely a vascular in etiology. Evaluation is, however, limited due to motion artifact on all images and incomplete images obtained. Common bile duct is normal, measuring 0.3 cm in diameter. LIVER: Normal size and signal. No focal mass. PANCREAS: Unremarkable. Pancreatic duct normal in caliber (0.2 cm) with no variant ductal anatomy appreciated. No peripancreatic collection or focal pancreatic mass. SPLEEN: Normal. ADRENAL GLANDS AND KIDNEYS: Both adrenal glands normal. Kidneys bilaterally symmetric. There may be a few tiny parapelvic cysts. Kidneys otherwise unremarkable. BOWEL LOOPS: Unremarkable to the extent included. LYMPHOVASCULAR STRUCTURES: Abdominal aorta normal in caliber. No periaortic collections. No significant abdominal adenopathy or free fluid collection. BONES: Unremarkable. IMPRESSION: Limited evaluation. However, the biliary tree is normal in caliber and no evidence of choledocholithiasis is seen, including in the common hepatic duct, where on CT scan small calcifications were suspected. These calcifications may be vascular in etiology or less likely may have represented biliary calculi, which have passed in the interim.
[2016-04-23] MEDS ORDERED: BISACODYL5 M1 PO (13:58)
[2016-04-23] MEDS ORDERED: MIRALAX119 GM PO (13:58)
[2016-04-23] MEDS ORDERED: BENTYL10 M1 PO (13:58)
--- NOTE | 2016-04-23 14:03 | Patient Discharge Instructions ---
Discharge Instructions General Discharge Information You were seen/treated for: ABDOMINAL PAIN Special Instructions: PLEASE FOLLOW UP WITH YOUR PRIMARY CARE PHYSICIAN WITHIN 1 WEEK Please take the medication provided on discharge as needed for stomach spasms and constipation Diet Continue normal diet: Yes Acute Coronary Syndrome Inclusion Criteria At DC or during hospital stay patient has or had the following: ACS DIAGNOSIS No Discharge Core Measures Meds if any: Prescribed or Continued at Discharge Meds if any: NOT Prescribed or Continued at Discharge Congestive Heart Failure Inclusion Criteria At DC or during hospital stay patient has or had the following: CHF DIAGNOSIS No Discharge Core Measures Meds if any: Prescribed or Continued at Discharge Meds if any: NOT Prescribed or Continued at Discharge Cerebrovascular accident Inclusion Criteria At DC or during hospital stay patient has or had the following: CVA/TIA Diagnosis No Discharge Core Measures Meds if any: Prescribed or Continued at Discharge Meds if any: NOT Prescribed or Continued at Discharge Venous thromboembolism Inclusion Criteria VTE Diagnosis No VTE Type NONE VTE Confirmed by (Test) NONE Discharge Core Measures - Per Current guidelines, there needs to be overlap - treatment for the first 5 days of Warfarin therapy. - If discharged on Warfarin prior to 5 days of - overlap therapy, the patient will need to be - assessed for post discharge needs including - *Post discharge parental anticoagulation - *Warfarin and/or parental anticoagulation education - *Follow up date to check INR post discharge At least 5 days overlap therapy as Inpatient No Meds if any: Prescribed or Continued at Discharge Note: Overlap Therapy is Warfarin and Anticoagulant Meds if any: NOT Prescribed or Continued at Discharge
[2016-04-23] MEDS ORDERED: SENNA S TABLET1 EACH PO (14:34)
== END 2016-04-23 14:57 ==
LOC: ENRESERVDT → ENRESERVTM → ERH 08:55 → 2NA 18:44 → ERHI 18:44 → 2NA 20:55
PROVIDERS: Emergency Medicine; Student in an Organized Health Care Education/Training Program; ADMIT Internal Medicine Pulmonary Disease
DX: R10.33 Periumbilical pain (principal); G11.9 Hereditary ataxia, unspecified; R05 Cough; M79.606 Pain in leg, unspecified; E86.0 Dehydration
CPT/HCPCS: 6030; 74181; 74176; 81001; 82436; 96374; 96375; 96376; G0378; J0131; J1885

== ENCOUNTER 2016-04-24 22:59 | Emergency (ER) | payer OTHER ==
[~2016-04-24 22:59] MED LIST changes: +BENTYL10 M1 PO; +BISACODYL5 M1 PO; +LYRICA75 M1 PO; +MIRALAX119 GM PO; +SENNA S TABLET1 EACH PO; +VITAMIN E100 UNI1 PO; +ZOLPIDEM TART12.5 M1 PO
--- NOTE | 2016-04-24 23:31 | ED GI/GU/ABDOMINAL COMPLAINT ---
See Addendum History of Present Illness General Chief Complaint: Abdominal Pain/Flank Pain Stated Complaint: BIBA ABDOMINAL PAIN Source: patient, old records, EMS Exam Limitations: no limitations Vital Signs & Intake/Output Vital Signs & Intake/Output Vital Signs Date Time Temp Pulse Resp B/P Pulse O2 O2 Flow FiO2 Ox Delivery Rate 04/25 2208 98.0 100 20 148/96 97 04/25 1657 98.5 106 18 128/83 94 04/25 1650 97.6 110 20 129/82 96 Room Air 04/25 1341 97.1 98 18 136/74 98 Room Air 04/25 0851 97.1 102 20 138/74 97 Room Air 04/25 0655 97.6 108 20 147/76 98 Room Air 04/25 0525 97.6 118 20 146/92 95 Room Air Room Air Allergies Coded Allergies: NO KNOWN ALLERGIES (06/02/13) Triage Note: 45 YEAR OLD MALE BIBA FROM HOME C/O ABDOMINAL PAIN. PER MEDIC PT RECIEVED 100MG OF FENTYNL EN ROUTE. PT ARRIVES TO ED ALERT AND ORIENTED X3. PT IS DIAPHORETIC BUT DENIES CP, SOB. REPORTS DECREASE IN PAIN FROM MEDICATION. AWAITING PROVIDER EVAL. Triage Nurses Notes Reviewed? yes Onset: Just prior to arrival Duration: minute(s):, better, constant Timing: recent history Quality/Severity: aching, severe Location: periumbilical Radiation: no radiation Activities at Onset: none Prior Abdominal Problems: similar symptoms Past Sexual History: Unobtainable at this time Modifying Factors: Worsens With: palpation. Associated Symptoms: abdominal pain, diaphoresis HPI: Patient presents with recurrent periumbilical pain described as achy severe nonradiating. He was discharged yesterday for similar pain with negative workup. EMS administered fentanyl with resolution of discomfort. (PEEWEE JOHNSON,AGGIE) Reconcile Medications Dicyclomine Hydrochloride (Bentyl) 10 MG CAPSULE 1 CAP PO TID SPASMS Pantoprazole Sodium (Protonix) 40 MG TABLET.DR 1 TAB PO BID stomach ulcers Polyethylene Glycol 3350 (Miralax) 17 GRAM/DOSE POWDER 17 GM PO DAILY PRN CONSTIPATION Pregabalin (Lyrica) 75 MG CAPSULE 1 CAP PO BID NERVE PAIN (Reported) Sennosides/Docusate Sodium (Senna S Tablet) 8.6 MG-50 MG TABLET 1 TAB PO BID PRN CONSTIPATION Vitamin E (Dl,Tocopheryl Acet) (Vitamin E) (Unknown Strength) CAPSULE (Unknown Dose) PO DAILY SUPPLEMENT (Reported) Zolpidem Tartrate (Zolpidem Tartrate ER) 12.5 MG TAB.MPHASE 1 TAB PO QHS SLEEP (Reported) (DARWIN JOHNSON,AMOL Smith) Past History Travel History Traveled to [place] past 21 day No Medical History Any Pertinent Medical History? 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 No (AGGIE VIDES MD) Review of Systems Review of Systems Constitutional: Reports: see HPI, diaphoresis. EENTM: Reports: no symptoms. Respiratory: Reports: no symptoms. Cardiovascular: Reports: no symptoms. GI: Reports: see HPI, abdominal pain. Genitourinary: Reports: no symptoms. Musculoskeletal: Reports: no symptoms. Skin: Reports: no symptoms. Neurological/Psychological: Reports: no symptoms. Hematologic/Endocrine: Reports: no symptoms. Immunologic/Allergic: Reports: no symptoms. All Other Systems: Reviewed and Negative (AGGIE VIDES MD) Physical Exam Physical Exam General Appearance: well developed/nourished, alert, awake, anxious, mild distress Head: atraumatic, normal appearance Eyes: Bilateral: normal appearance, PERRL, EOMI, normal inspection. Ears, Nose, Throat, Mouth: hearing grossly normal, moist mucous membrane Neck: normal inspection, supple, full range of motion, normal alignment Respiratory: normal breath sounds, chest non-tender, no respiratory distress, quiet respiration, lungs clear Cardiovascular: regular rate/rhythm, normal peripheral pulses, norml femoral pulses equa Peripheral Pulses: 4+ carotid (R), 4+ carotid (L) Gastrointestinal: normal bowel sounds, soft, non-tender, no organomegaly Male Genitals: normal genitalia Back: normal inspection, normal range of motion Extremities: normal range of motion, no ligament instability Neurologic/Psych: no motor/sensory deficits, awake, alert, oriented x 3, normal gait, normal mood/affect Skin: intact, normal color, diaphoresis Core Measures ACS in differential dx? No Severe Sepsis Present: No Septic Shock Present: No (PEEWEE JOHNSON,AGGIE) Progress Differential Diagnosis: gastritis, pancreatitis, PUD/GERD Plan of Care: Orders Procedure Date/time Status Regular Diet 04/26 B Active CASE MANAGEMENT CONSULT 04/25 1731 Active PT Evaluate & Treat 04/25 173 Active URINALYSIS 04/25 172 Complete PATHOLOGY SPECIMEN 04/25 1552 Active URINE DRUGS OF ABUSE 04/25 0936 Complete LIPASE 04/25 0221 Complete AMYLASE 04/25 0221 Complete Current Medications Sig/Steve Start time Last Medication Dose Stop Time Status Admin Omeprazole 40 MG BID 04/25 2321 UNVr (Prilose) Laboratory Tests 04/25/16 1730: Urine Color YEL, Urine Clarity CLEAR, Urine pH 6.0, Ur Specific [place] >= 1.030 , Urine Protein 30 H, Urine Ketones 15 H, Urine Nitrite NEG, Urine Bilirubin NEG@ICTO, Urine Urobilinogen 0.2, Ur Leukocyte Esterase NEG, Ur Microscopic SEDIMENT EXAMINED, Urine RBC RARE, Urine WBC 1-3 H, Ur Epithelial Cells OCCAS, Urine Crystals 1+ CA OX H, Hyaline Casts MANY H, Granular Casts RARE H, Urine Mucus MANY H, Urine Hemoglobin NEG, Urine Glucose NEG 04/25/16 0941: Urine Opiates Screen 148.00, Methadone Screen 41, Barbiturate Screen < 60, Ur Phencyclidine Scrn 10.20, Amphetamines Screen < 100, U Benzodiazepines Scrn < 85 , Urine Cocaine Screen < 50, Urine Cannabis Screen < 5.00 04/25/16 0238: Lactic Acid 1.0 04/25/16 0238: Amylase 46, Lipase 173 04/25/2016 11:56:19 AM The patient remains in the ED. We are pending a consult by Dr. Rasheed Almonte to determine if the patient requires readmission to the hospital. Still complains of some abdominal pain and nausea. [address] Rasheed Almonte. Patient will go for EEG proximally 1 PM. 1:15 PM IV PROTONIX GIVEN. Case managment invoved, parents feel he is not stable for discharge home. Case discussed with Dr. Becker. He will remain in the ER overnight for physical therapy assessment tomorrow and likely placement to short-term rehabilitation. Patient feeling better after IV Protonix. Endoscopy showed esophageal ulcerations. Recommendation is for PPI. (LANETTE HOOD MD) Diagnostic Imaging: Viewed by Me: Radiology Read. Discussed w/RAD: Radiology Read. Radiology Impression: no acute abnormality Initial ED EKG: none Hand-Off Endorsed To: LANETTE HOOD MD Endorsed Time: 07 Pending: consult (GI) Comments: Continues to have intermittent periumbilical pain with diaphoresis. Discussed with Dr. Becker, GI consultation requested. (AGGIE VIDES MD) Hand-Off Endorsed To: AMOL GRANADOS MD Endorsed Time: 1900 Pending: consult (PT, CASE MANAGEMENT) (LANETTE HOOD MD) Hand-Off Endorsed To: AGGEI VIDES MD Endorsed Time: 0700 Pending: consult (AMOL GRANADOS MD) Departure Departure Disposition: STILL A PATIENT Condition: Stable Clinical Impression Primary Impression: Abdominal pain in male Referrals: SHELL JOHNSON,DON Suarez (PCP/Family) Departure Forms: Customer Survey General Discharge Information (AGGIE VIDES MD) Departure Prescriptions: Current Visit Scripts Pantoprazole Sodium (Protonix) 1 TAB PO BID #60 TAB (AMOL GRANADOS MD)
[2016-04-24 23:40] LABS: ABSOLUTE BASOPHIL COUNT 0 /CUMM (0.0-0.2); ABSOLUTE EOSINOPHIL COUNT 0.1 /CUMM (0.0-0.7); ABSOLUTE GRANULOCYTE CT 8.8 /CUMM (1.4-6.5); ABSOLUTE LYMPH COUNT 1.1 /CUMM (1.2-3.4); ABSOLUTE MONOCYTE COUNT 0.8 /CUMM (0.10-0.60); BASOPHIL % 0.3 % (0.0-2.0); EOSINOPHIL % 0.6 % (0-5); GRANULOCYTE % 81.2 % (42.2-75.2); HEMATOCRIT 39.5 % (42-52); MEAN CORPUSCULAR HGB 29.9 PG (27.0-31.0); MEAN CORPUSCULAR HGB CONC 33.6 G/DL (33.0-37.0); MEAN CORPUSCULAR VOLUME 88.9 FL (80.0-94.0); MEAN PLATELET VOLUME 7.6 FL (7.4-10.4); PLATELET COUNT 227 /CUMM (130-400); RBC DISTRIBUTION WIDTH 13.5 % (11.5-14.5); RED BLOOD CELL CT 4.44 /CUMM (4.70-6.10); WHITE BLOOD CELL COUNT 10.8 /CUMM (4.8-10.8)
--- NOTE | 2016-04-25 00:47 | RADIOLOGY REPORT ---
EXAMINATION: XR ABDOMEN WITH PA CHEST CLINICAL INDICATION: Periumbilical pain. Chronic cough. COMPARISON: CT from 04/22/2016. Chest radiograph 06/26/2015. TECHNIQUE: AP semiupright view of the chest. 2 views, 4 images of the abdomen. FINDINGS: There is elevation of the right hemidiaphragm. No consolidation, edema, or effusion. No pneumothorax. The cardiomediastinal silhouette is within normal limits. No acute osseous abnormality. The bowel gas pattern is nonobstructive. No dilated loops of bowel. No free air on the upright view. No suspicious calcifications. No acute osseous abnormality. IMPRESSION: No acute pulmonary findings. Nonobstructive bowel gas pattern.
--- NOTE | 2016-04-25 16:41 | Cons- Gastroenterology ---
General Information and HPI Consulting Request Date of Consult: 04/25/16 (MD Rosaura/GASTROENTEROLOGY) Requested By: Dr. Stein, ED Reason for Consult: Epigastric pain Source of Information: patient, family Exam Limitations: clinical condition History of Present Illness: The patient has cerebellar degenerative disease, but no underlying chronic or recurrent gastrointestinal problem. There has been no antecedent heartburn, nausea, dyspepsia, constipation (usual pattern is every other day), diarrhea. He takes ibuprofen regularly. He now has 4 days of intermittent, waxing and waning epigastric pain without radiation. The patient denies burning/heartburn. There's been no association with eating. There was transient nausea, no vomiting. No fever, chills; there has been episodic diaphoresis. His bowel movements have decreased, as has his oral intake. No other family members were ill, and there have been no new medications. His mother found some blood on his sheet, of unclear origin. He was temporarily admitted to the hospital 3 days ago; he was seen by surgery once , without diagnosis. Evaluation including ultrasound, CT and MRCP, as well as laboratory testing, were negative. Allergies/Medications Allergies: Coded Allergies: NO KNOWN ALLERGIES (06/02/13) Home Med List: Dicyclomine Hydrochloride (Bentyl) 10 MG CAPSULE 1 CAP PO TID SPASMS Polyethylene Glycol 3350 (Miralax) 17 GRAM/DOSE POWDER 17 GM PO DAILY PRN CONSTIPATION Pregabalin (Lyrica) 75 MG CAPSULE 1 CAP PO BID NERVE PAIN (Reported) Sennosides/Docusate Sodium (Senna S Tablet) 8.6 MG-50 MG TABLET 1 TAB PO BID PRN CONSTIPATION Vitamin E (Dl,Tocopheryl Acet) (Vitamin E) (Unknown Strength) CAPSULE (Unknown Dose) PO DAILY SUPPLEMENT (Reported) Zolpidem Tartrate (Zolpidem Tartrate ER) 12.5 MG TAB.MPHASE 1 TAB PO QHS SLEEP (Reported) Current Medications: Current Medications Sig/Steve Start time Last Medication Dose Route Stop Time Status Admin Benzocaine 1 DANETTE .STK-MED ONE 04/25 1555 DC [facility] 04/25 6686 Dicyclomine HCl 10 MG ONCE ONE 04/25 744 DC 04/25 IM 04/25 745 0750 Hyoscyamine 0.125 MG ONCE ONE 04/25 744 DC 04/25 SL 02/10 0746 0750 Hyoscyamine 0.125 MG ONCE ONE 04/25 0445 DC 04/25 SL 04/25 0446 0452 Lidocaine 2 DANETTE .STK-MED ONE 04/25 1555 DC TOP 04/25 1556 Pantoprazole Sodium 0 .STK-MED ONE 04/25 1323 DC IV Pantoprazole Sodium 40 MG ONCE ONE 04/25 1315 DC 04/25 IV 04/25 1316 1338 Sodium Chloride 1,000 ML BOLUS ONE 04/25 0745 DC 04/25 IV 04/25 0844 0750 Sodium Chloride 1,000 ML BOLUS ONE 04/25 0145 DC 04/25 IV 04/25 0244 0140 Sodium Chloride 1,000 ML ONCE ONE 04/24 2330 DC 04/24 IV 04/25 0029 2337 Past History Travel History Traveled to [place] past 21 day No Medical History Neurological: CEREBRAL ATAXIA EENT: NONE Cardiovascular: NONE Respiratory: NONE Gastrointestinal: NONE Hepatic: NONE Renal: NONE Musculoskeletal: MUSCULAR/FACIAL SPASMS Psychiatric: anxiety, depression Endocrine: NONE Blood Disorders: NONE Cancer(s): 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 parent Services at Home: None Primary Language: Algerian Functional Ability ADLs Independent: dressing, eating, toileting, bathing. Ambulation: walker IADLs Needs Assist: shopping, housework, finances, food prep, telephone, transportation, medication admin. Review of Systems Review of Systems Constitutional: Reports: diaphoresis. Denies: chills, fever. EENTM: Denies: icterus, epistaxis. Cardiovascular: Denies: chest pain, edema, syncope. Respiratory: Denies: cough, hemoptysis, short of breath. GI: Reports: see HPI. Genitourinary: Denies: dysuria, frequency, hematuria. Musculoskeletal: Denies: muscle stiffness, neck pain. Skin: Denies: jaundice, lesions. Neurological/Psychological: Reports: ataxia, cognitive dysfunction, headache. Hematologic/Endocrine: Denies: bruising, bleeding. Exam & Diagnostic Data Vital Signs and I&O Vital Signs Date Time Temp Pulse Resp B/P Pulse O2 O2 Flow FiO2 Ox Delivery Rate 04/25 1341 97.1 98 18 136/74 98 Room Air 04/25 0851 97.1 102 20 138/74 97 Room Air 04/25 0655 97.6 108 20 147/76 98 Room Air 04/25 0525 97.6 118 20 146/92 95 Room Air Room Air 04/24 2311 96 Room Air Room Air 04/24 2309 96.7 109 20 147/69 96 Room Air Room Air Intake & Output 04/25 1600 04/25 0400 04/24 0400 04/23 1600 04/23 040 Intake Total 3000 Output Total 480 Balance 2520 Intake, IV 3000 Output, Urine 480 Physical Exam: Well-developed well-nourished. Alert, difficult communication because of dysarthria. Multiple tattoos, no skin lesion/rash/jaundice. No adenopathy. Sclera anicteric. No oropharyngeal lesions. Neck supple without thyromegaly. Heart regular rhythm. Lungs clear. Abdomen soft and nondistended with normal bowel sounds; mild epigastric tenderness, without mass or organomegaly. Extremities without clubbing, cyanosis and edema. Pulses intact. Results Pertinent Lab Results: Laboratory Tests 04/25 04/25 04/25 04/24 0941 0238 0238 2330 Chemistry Sodium (137 - 145 mmol/L) 141 Potassium (3.5 - 5.1 mmol/L) 4.2 Chloride (98 - 107 mmol/L) 106 Carbon Dioxide (22 - 30 mmol/L) 25 Anion Gap (5 - 16) 11 BUN (9 - 20 mg/dL) 9 Creatinine (0.7 - 1.2 mg/dL) 0.6 L Estimated GFR (>60 ml/min) > 60 BUN/Creatinine Ratio (7 - 25 %) 15.0 Glucose (65 - 99 mg/dL) 99 Lactic Acid (0.7 - 2.1 mmol/L) 1.0 1.2 Calcium (8.4 - 10.2 mg/dL) 9.0 Total Bilirubin (0.2 - 1.3 mg/dL) 0.6 AST (17 - 59 U/L) 76 H ALT (21 - 72 U/L) 69 Alkaline Phosphatase (< 127 U/L) 77 C-React Prot High Sens (1.0 - 3.0 mg/L) 4.8 H Total Protein (6.3 - 8.2 g/dL) 7.0 Albumin (3.5 - 5.0 g/dL) 4.1 Globulin (1.9 - 4.2 gm/dL) 2.9 Albumin/Globulin Ratio (1.1 - 2.2 %) 1.4 Amylase (30 - 110 U/L) 46 Lipase (23 - 300 U/L) 173 337 H Hematology CBC w Diff NO MAN DIFF REQ WBC (4.8 - 10.8 /CUMM) 10.8 RBC (4.70 - 6.10 /CUMM) 4.44 L Hgb (14.0 - 18.0 G/DL) 13.3 L Hct (42 - 52 %) 39.5 L MCV (80.0 - 94.0 FL) 88.9 MCH (27.0 - 31.0 PG) 29.9 RDW (11.5 - 14.5 %) 13.5 Plt Count (130 - 400 /CUMM) 227 MPV (7.4 - 10.4 FL) 7.6 Gran % (42.2 - 75.2 %) 81.2 H Lymphocytes % (20.5 - 51.1 %) 10.2 L Monocytes % (1.7 - 9.3 %) 7.7 Eosinophils % (0 - 5 %) 0.6 Basophils % (0.0 - 2.0 %) 0.3 Absolute Granulocytes (1.4 - 6.5 /CUMM) 8.8 H Absolute Lymphocytes (1.2 - 3.4 /CUMM) 1.1 L Absolute Monocytes (0.10 - 0.60 /CUMM) 0.8 H Absolute Eosinophils (0.0 - 0.7 /CUMM) 0.1 Absolute Basophils (0.0 - 0.2 /CUMM) 0 PUBS MCHC (33.0 - 37.0 G/DL) 33.6 Toxicology Urine Opiates Screen (>2000 NG/ML) 148.00 Methadone Screen (>300 NG/ML) 41 Barbiturate Screen (>200 NG/ML) < 60 Ur Phencyclidine Scrn (>25 NG/ML) 10.20 Amphetamines Screen (>1000 NG/ML) < 100 U Benzodiazepines Scrn (>200 NG/ML) < 85 Urine Cocaine Screen (>300 NG/ML) < 50 Urine Cannabis Screen (>50 NG/ML) < 5.00 Imaging/Other Studies: CT scan on 04/22: IMPRESSION: * No focal inflammatory process or obstruction. Normal appendix. * No renal or ureteral calculi. No hydronephrosis. * There are 2 small calcifications in the region of the common hepatic duct. It is unclear if these represent ductal stones or vascular calcifications. There is no biliary ductal dilatation. An ultrasound, contrast-enhanced CT or MRCP may be able to clarify. Ultrasound on 04/22: IMPRESSION: Essentially nondiagnostic examination as the patient was unable to remain still secondary to pain. Additionally, the patient's body habitus and overlying bowel gas limited visualization of the abdominal organs. The liver was incompletely evaluated and the gallbladder and common bile duct were not evaluated. MRCP on 04/23: IMPRESSION: Limited evaluation. However, the biliary tree is normal in caliber and no evidence of choledocholithiasis is seen, including in the common hepatic duct, where on CT scan small calcifications were suspected. These calcifications may be vascular in etiology or less likely may have represented biliary calculi, which have passed in the interim. AXR on 04/24: IMPRESSION: No acute pulmonary findings. Nonobstructive bowel gas pattern. Assessment/Plan Assessment/Recommendations: Epigastric pain, in a patient who takes NSAIDs regularly. Rule out peptic ulcer disease, ulcerative esophagitis. By imaging and laboratory evaluation, no evidence for pancreatobiliary disease, bowel obstruction, enteritis, ureterolithiasis. Blood found in the patient's bed sheet, of unclear source. Recommendations * PPI * EGD today * Continue anticholinergic agent * Further recommendations to follow the procedure Copies To: SHELL JOHNSON,DON Suarez Consult Acknowledgment - Thank you for your consult request.
--- NOTE | 2016-04-25 16:45 | Proc Note Endoscopy ---
Endoscopy Procedure Procedure Date: 04/25/16 Procedure Type: EGD w/biopsy Mail Clerk: Charles Almonte M.D. ASA Classification: III Indications: Epigastric pain Instrument: diagnostic gastroscope, pediatric colonoscope Meds Received: MAC (O2 via mask) Patient's Tolerance: good Complications: none Extent Reached: proximal jejunum Procedure: The patient signed informed consent, and was medicated. Hurricane pharyngeal spray was administered. Pulse oximetry, blood pressure and cardiac monitoring were performed continuously throughout the procedure. The Olympus high- definition gastroscope was inserted into the mouth and advanced to the duodenum. Retroflexion was performed within the stomach to examine the cardia. The gastroscope was then exchanged for a pediatric colonoscope, which was advanced to the jejunum. Careful examination was performed. Findings: The esophagus had normal caliber and contour. In the distal mucosa there were erosions, and 2 ulcerations, one of which was of less than 1 cm, and one punctate. The GE junction was at 46 cm and otherwise normal. There was no evident hiatal hernia. The stomach had normal distention and active peristalsis. The cardia was normal. The mucosa and folds of the stomach were normal throughout. Biopsies were obtained from the antrum. The pyloric channel was normal. The duodenal bulb was normal except for a single erosion. Mucosa and folds of the duodenal sweep, and proximal jejunum were normal. Impression: * Erosive esophagitis * Duodenal erosion Recommendations: * Await pathology * PPI therapy * Antacids prn CC: SHELL JOHNSON,DON Suarez
[2016-04-25] MEDS ORDERED: PROTONIX40 M3 PO (23:22)
[2016-04-26 14:00] VITALS: BP 129/78
== END 2016-04-26 15:41 ==
LOC: ERH 22:59
PROVIDERS: Emergency Medicine
DX: R10.33 Periumbilical pain (principal); K20.8 Other esophagitis; K26.9 Duodenal ulcer, unspecified as acute or chronic, without hemorrhage or perforation; K29.50 Unspecified chronic gastritis without bleeding
CPT/HCPCS: 74022; 80307; 81001; 88305; 88312; 97162-GP; 97530-GP; J0500

== ENCOUNTER 2016-05-06 15:10 | Emergency (ER) | payer OTHER ==
[~2016-05-06] VITALS: Ht 208.3 cm; Wt 112.5 kg
[~2016-05-06 15:10] MED LIST changes: +PROTONIX40 M3 PO
--- NOTE | 2016-05-06 16:34 | ED HEAD/FACIAL INJ COMPLAINT ---
History of Present Illness General Chief Complaint: Fall Stated Complaint: BIBA S/P FALL Source: patient, old records Exam Limitations: no limitations Vital Signs & Intake/Output Vital Signs & Intake/Output Vital Signs Date Time Temp Pulse Resp B/P Pulse O2 O2 Flow FiO2 Ox Delivery Rate 05/06 1647 97.1 96 15 120/63 97 Room Air Room Air 05/06 1519 Room Air Room Air 05/06 1511 97.3 98 15 138/77 100 Room Air Room Air Allergies Coded Allergies: NO KNOWN ALLERGIES (05/06/16) Reconcile Medications Dicyclomine Hydrochloride (Bentyl) 10 MG CAPSULE 1 CAP PO TID SPASMS Pantoprazole Sodium (Protonix) 40 MG TABLET.DR 1 TAB PO BID stomach ulcers Polyethylene Glycol 3350 (Miralax) 17 GRAM/DOSE POWDER 17 GM PO DAILY PRN CONSTIPATION Pregabalin (Lyrica) 75 MG CAPSULE 1 CAP PO BID NERVE PAIN (Reported) Sennosides/Docusate Sodium (Senna S Tablet) 8.6 MG-50 MG TABLET 1 TAB PO BID PRN CONSTIPATION Vitamin E (Dl,Tocopheryl Acet) (Vitamin E) (Unknown Strength) CAPSULE (Unknown Dose) PO DAILY SUPPLEMENT (Reported) Zolpidem Tartrate (Zolpidem Tartrate ER) 12.5 MG TAB.MPHASE 1 TAB PO QHS SLEEP (Reported) Triage Note: PT BIBA FROM [facility] FOR LIP LAC S/P MECHANICAL TRIP AND FALL DURING PHYSICAL THERAPY. +CONTROLLED BLEEING LAC TO R SIDE LIP. DENIES BLOOD THINNERS. Triage Nurses Notes Reviewed? 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 No loss of consciousness, nausea vomiting, no headaches, no head injury, no confusion, no change in mental status. Mild sharp pain to the right lateral lower lip region. (DESTIN JUDD) Past History Travel History Traveled to [place] past 21 day No Medical History Any Pertinent Medical History? 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 No (DESTIN JUDD) Review of Systems Review of Systems Constitutional: Reports: see HPI. EENTM: Reports: see HPI. Respiratory: Reports: no symptoms. Cardiovascular: Reports: no symptoms. GI: Reports: no symptoms. Genitourinary: Reports: no symptoms. Musculoskeletal: Reports: no symptoms. Skin: Reports: no symptoms. Neurological/Psychological: Reports: no symptoms. Hematologic/Endocrine: Reports: no symptoms. Immunologic/Allergic: Reports: no symptoms. All Other Systems: Reviewed and Negative (DESTIN JUDD) Physical Exam Physical Exam General Appearance: well developed/nourished Cranial Nerves: normal hearing, normal speech, PERRL Comments: Well-developed well-nourished no apparent distress. HEENT: Irregular 1.5 cm laceration to the right side of the lower lip. Mild swelling. Not a through through laceration although this laceration is deep into the subcutaneous tissue. On the inner surface of the lip there is a 1 cm superficial inner lip laceration with mild swelling in the area indicative of dental trauma. No dental injury, no dental fracture, no jaw malalignment. Extraocular motion intact Neck: Supple, no lymphadenopathy, nontender, full range of motion Back: Nontender Respiratory: No respiratory distress Extremities: No edema, full range of motion Neuro: Alert and oriented x3, cranial nerves II through XII grossly intact Psych: Mood affect normal, normal memory normal judgment. Skin: Warm and dry, no rash on exposed skin (DESTIN JUDD) Progress Differential Diagnosis: corneal abrasion, c-spine injury, facial fracture, globe injury, ICH, orbit fracture, skull fracture Plan of Care: After verbal consent was obtained the laceration area was anesthetized with lidocaine 2% with epinephrine right side lateral lip inferior lip It was prepped and draped in a sterile fashion with Betadine. The wound was copiously irrigated with normal saline. The wound was inspected and no foreign bodies or tendon lacerations were noted on exam and there is no functional deficit. There is no arterial bleeding. 4-0 Vicryl skin simple interrupted sutures were placed 2 Sutures in total. Bacitracin was applied. The patient tolerated the procedure well without complications. Infection and risk of foreign body discussed. will placed on abx due to intra oral laceration. Follow-up instructions and wound care was discussed. (DESTIN JUDD) Departure Departure Disposition: HOME OR SELF CARE Condition: Stable Clinical Impression Primary Impression: Laceration of lip Qualifiers: Encounter type: initial encounter Qualified Code: S01.511A - Laceration without foreign body of lip, initial encounter Referrals: DILIP JOHNSON,REBA [place] (PCP/Family) Departure Forms: Customer Survey General Discharge Information (DESTIN JUDD) PA/PEDIATRIC PHYSICAL THERAPY ASSISTANT Co-Sign Statement Statement: ED Attending supervision documentation- [] I saw and evaluated the patient. I have also reviewed all the pertinent lab results and diagnostic results. I agree with the findings and the plan of care as documented in the PA's/PEDIATRIC PHYSICAL THERAPY ASSISTANT's documentation. x I have reviewed the ED Record and agree with the PA's/PEDIATRIC PHYSICAL THERAPY ASSISTANT's documentation. [] Additions or exceptions (if any) to the PAs/PEDIATRIC PHYSICAL THERAPY ASSISTANT's note and plan are summarized below: [] (PEEWEE JOHNSON,AGGIE)
[2016-05-06 16:47] VITALS: BP 120/63
== END 2016-05-06 17:14 ==
LOC: ERH 15:10
DX: S01.511A Laceration without foreign body of lip, initial encounter (principal); W18.09XA Striking against other object with subsequent fall, initial encounter

== ENCOUNTER 2016-06-26 18:17 | Emergency (ER) | payer OTHER ==
[~2016-06-26] VITALS: Ht 200.7 cm; Wt 113.4 kg
[2016-06-26 18:57] LABS: ABSOLUTE BASOPHIL COUNT 0 /CUMM (0.0-0.2); ABSOLUTE EOSINOPHIL COUNT 0.1 /CUMM (0.0-0.7); ABSOLUTE GRANULOCYTE CT 4.9 /CUMM (1.4-6.5); ABSOLUTE LYMPH COUNT 1.6 /CUMM (1.2-3.4); ABSOLUTE MONOCYTE COUNT 0.8 /CUMM (0.10-0.60); BASOPHIL % 0.5 % (0.0-2.0); EOSINOPHIL % 0.7 % (0-5); GRANULOCYTE % 66.3 % (42.2-75.2); HEMATOCRIT 41.1 % (42-52); MEAN CORPUSCULAR HGB 30.2 PG (27.0-31.0); MEAN CORPUSCULAR HGB CONC 33.8 G/DL (33.0-37.0); MEAN CORPUSCULAR VOLUME 89.4 FL (80.0-94.0); MEAN PLATELET VOLUME 7.8 FL (7.4-10.4); PLATELET COUNT 226 /CUMM (130-400); RBC DISTRIBUTION WIDTH 13.8 % (11.5-14.5); WHITE BLOOD CELL COUNT 7.4 /CUMM (4.8-10.8)
--- NOTE | 2016-06-26 19:40 | RADIOLOGY REPORT ---
EXAMINATION: XR PORTABLE CHEST CLINICAL INFORMATION: Shortness of breath, cough. Evaluate for pneumonia. COMPARISON: Chest x-ray 06/26/2015. TECHNIQUE: Portable AP view of the chest was obtained. FINDINGS: The lungs are well-expanded and clear without focal airspace consolidation. No pleural effusions or pneumothoraces are identified. Cardiomediastinal contours are within normal limits. Soft tissues are unremarkable. No acute osseous abnormality is identified. IMPRESSION: No acute pulmonary process.
--- NOTE | 2016-06-26 21:00 | ED GI/GU/ABDOMINAL COMPLAINT ---
History of Present Illness General Chief Complaint: Abdominal Pain/Flank Pain Stated Complaint: SOB. ABD PAIN Source: patient, old records Exam Limitations: no limitations Vital Signs & Intake/Output Vital Signs & Intake/Output Vital Signs Date Time Temp Pulse Resp B/P Pulse O2 O2 Flow FiO2 Ox Delivery Rate 06/26 2132 98.2 108 22 132/76 97 Room Air 06/26 2029 Room Air 06/26 1826 95.5 105 20 142/97 97 Room Air Room Air Allergies Coded Allergies: NO KNOWN ALLERGIES (05/06/16) Reconcile Medications Dicyclomine Hydrochloride (Bentyl) 10 MG CAPSULE 1 CAP PO TID SPASMS Hyoscyamine Sulfate (Levsin-Sl) 0.125 MG TAB.SUBL 1-2 TAB SL Q4P PRN abd pain, diarrhea Metoclopramide HCl (Reglan) 10 MG TABLET 1 TAB PO 4 TIMES/DAY esophagitis 30 minutes before meals and bedtime Pantoprazole Sodium (Protonix) 40 MG TABLET.DR 1 TAB PO BID stomach ulcers Polyethylene Glycol 3350 (Miralax) 17 GRAM/DOSE POWDER 17 GM PO DAILY PRN CONSTIPATION Pregabalin (Lyrica) 75 MG CAPSULE 1 CAP PO BID NERVE PAIN (Reported) Sennosides/Docusate Sodium (Senna S Tablet) 8.6 MG-50 MG TABLET 1 TAB PO BID PRN CONSTIPATION Vitamin E (Dl,Tocopheryl Acet) (Vitamin E) (Unknown Strength) CAPSULE (Unknown Dose) PO DAILY SUPPLEMENT (Reported) Zolpidem Tartrate (Zolpidem Tartrate ER) 12.5 MG TAB.MPHASE 1 TAB PO QHS SLEEP (Reported) Triage Note: PT TO ED WITH C/O DIARRHEA AND ABD PAIN X 2-3 DAYS, DENIES VOMITING. Triage Nurses Notes Reviewed? yes Onset: 2-3 days Duration: day(s):, continues in ED, intermittent Timing: recent history Quality/Severity: aching, burning, moderate Location: epigastric Radiation: no radiation Activities at Onset: none Prior Abdominal Problems: similar symptoms Past Sexual History: Unobtainable at this time Modifying Factors: Worsens With: eating. Associated Symptoms: abdominal pain, diarrhea HPI: 2-3 days prior to admission patient complains of epigastric burning occurring intermittently worse after eating nonradiating mild to moderate in severity associated with frequent loose watery stool. He denies fever chills chest pain cough shortness breath headache dysuria rash bleeding. Past History Travel History Traveled to [place] past 21 day No Medical History Any Pertinent Medical History? 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 No Review of Systems Review of Systems Constitutional: Reports: no symptoms. EENTM: Reports: no symptoms. Respiratory: Reports: no symptoms. Cardiovascular: Reports: no symptoms. GI: Reports: see HPI, abdominal pain, diarrhea. Genitourinary: Reports: no symptoms. Musculoskeletal: Reports: no symptoms. Skin: Reports: no symptoms. Neurological/Psychological: Reports: no symptoms. Hematologic/Endocrine: Reports: no symptoms. Immunologic/Allergic: Reports: no symptoms. All Other Systems: Reviewed and Negative Physical Exam Physical Exam General Appearance: well developed/nourished, alert, awake, anxious, moderate distress, thin Head: atraumatic, normal appearance Eyes: Bilateral: normal appearance, PERRL, EOMI, normal inspection. Ears, Nose, Throat, Mouth: hearing grossly normal, moist mucous membrane Neck: normal inspection, supple, full range of motion, normal alignment Respiratory: normal breath sounds, chest non-tender, no respiratory distress, quiet respiration, lungs clear Cardiovascular: regular rate/rhythm, normal peripheral pulses, norml femoral pulses equa Peripheral Pulses: 4+ carotid (R), 4+ carotid (L) Gastrointestinal: normal bowel sounds, soft, non-tender, no organomegaly Male Genitals: normal genitalia Back: normal inspection, normal range of motion Extremities: normal range of motion, no ligament instability Neurologic/Psych: awake, alert Skin: intact, normal color Core Measures ACS in differential dx? No Severe Sepsis Present: No Septic Shock Present: No Progress Differential Diagnosis: biliary colic, gastritis, PUD/GERD Plan of Care: Orders Procedure Date/time Status URINALYSIS 06/26 1829 Complete LIPASE 06/26 1829 Complete COMPREHENSIVE METABOLIC PANEL 06/26 1829 Complete CBC WITHOUT DIFFERENTIAL 06/26 1829 Complete AMYLASE 06/26 1829 Complete EKG 06/26 1829 Active Laboratory Tests 06/26/162119: Urine Color YEL, Urine Clarity CLEAR, Urine pH 6.0, Ur Specific [place] 1.025, Urine Protein NEG, Urine Ketones 15 H, Urine Nitrite NEG, Urine Bilirubin NEG, Urine Urobilinogen 0.2, Ur Leukocyte Esterase NEG, Ur Microscopic SEDIMENT EXAMINED, Urine RBC 1-3, Urine WBC 1-3 H, Urine Mucus MOD H, Urine Hemoglobin SMALL H, Urine Glucose NEG 06/26/161841: Anion Gap 12, Estimated GFR > 60, BUN/Creatinine Ratio 10.0, Glucose 90, Calcium 9.8, Total Bilirubin 0.6, AST 26, ALT 53, Alkaline Phosphatase 81, Total Protein 7.5, Albumin 4.5, Globulin 3.0, Albumin/Globulin Ratio 1.5, Amylase 49, Lipase 72, CBC w Diff NO MAN DIFF REQ, RBC 4.60 L, MCV 89.4, MCH 30.2, RDW 13.8, MPV 7.8, Gran % 66.3, Lymphocytes % 21.7, Monocytes % 10.8 H, Eosinophils % 0.7, Basophils % 0.5, Absolute Granulocytes 4.9, Absolute Lymphocytes 1.6, Absolute Monocytes 0.8 H, Absolute Eosinophils 0.1, Absolute Basophils 0, PUBS MCHC 33.8 Initial ED EKG: normal axis, normal intervals, normal p-waves, normal QRS complex, normal sinus rhythm, no ST T wave changes Prior EKG: unchanged Rhythm Strip: normal sinus rhythm Departure Departure Time of Disposition: 2158 Disposition: HOME OR SELF CARE Condition: Stable Clinical Impression Primary Impression: Ulcerative esophagitis Secondary Impressions: Diarrhea Qualifiers: Diarrhea type: unspecified type Qualified Code: R19.7 - Diarrhea, unspecified Referrals: SHELL JOHNSON,DON Suarez (PCP/Family) AUTUMN ROLAND MD Departure Forms: Customer Survey General Discharge Information Prescriptions: Current Visit Scripts Hyoscyamine Sulfate (Levsin-Sl) 1-2 TAB SL Q4P PRN abd cramps, diarrhea #60 TAB Metoclopramide HCl (Reglan) 1 TAB PO 4 TIMES/DAY #30 TAB 30 minutes before meals and bedtime
[2016-06-26 21:33] VITALS: BP 132/76
[2016-06-26] MEDS ORDERED: LEVSIN-SL0.125 MG SL ×2 (22:02→22:23)
[2016-06-26] MEDS ORDERED: REGLAN10 M1 PO ×2 (22:02→22:23)
== END 2016-06-26 22:27 ==
LOC: ERH 18:17
PROVIDERS: Emergency Medicine
DX: K22.10 Ulcer of esophagus without bleeding (principal); R19.7 Diarrhea, unspecified
CPT/HCPCS: 81001; 93005; 93010; 96374; 96375; J2765

== ENCOUNTER 2017-06-27 10:42 | Emergency (ER) | payer OTHER, MEDICARE ==
[~2017-06-27] VITALS: Ht 208.3 cm; Wt 111.1 kg
[~2017-06-27 10:42] MED LIST changes: +ACEPHEN650 M1 PR; +CALCIUM500 M2 PO; +DULCOLAX10 M1 RC; +EFFEXOR XR150 M1 PO; +FLEET ENEMA133 ML RC; +LAMICTAL25 M1 PO; +LEVSIN-SL0.125 MG SL; +LEXAPRO10 M1 PO; +LYRICA150 M1 PO; +MAPAP325 M1 PO; +MILK OF MA400 MG/52 PO; +NARCAN4 MG NAS; +OMEPRAZOLE20 M2 PO; +PAIN & FEVER325 M1 PO; +REGLAN10 M1 PO; +SENNA8.6 M3 PO; +TRAZODONE HCL50 M1 PO
--- NOTE | 2017-06-27 13:03 | ED MVC/FALL/TRAUMA COMPLAINT ---
History of Present Illness General Chief Complaint: Facial or Head Injury Stated Complaint: BIBA FOR FACIAL INJURY TO RT SIDE Source: patient, family Exam Limitations: no limitations Vital Signs & Intake/Output Vital Signs & Intake/Output Vital Signs Date Time Temp Pulse Resp B/P B/P Pulse O2 O2 Flow FiO2 Mean Ox Delivery Rate 06/27 1106 96.9 103 16 121/79 97 Allergies Coded Allergies: NO KNOWN ALLERGIES (05/06/16) Reconcile Medications Acetaminophen (Pain & Fever) 325 MG TABLET 2 TAB PO Q6H PAIN (Reported) Acetaminophen (Acephen) 650 MG SUPP.RECT 1 SUPP [place] Q6H PRN PAIN/TEMP>101 ( Reported) Acetaminophen (Mapap) 325 MG TABLET 2 TAB PO Q6H PRN PAIN/TEMP>101 (Reported) Bisacodyl (Dulcolax) 10 MG SUPP.RECT 1 SUP RC DAILY PRN CONSTIPATION ( Reported) Calcium Carbonate (Calcium) 500 MG CALCIUM (1,250 MG) TAB.CHEW 1 TAB PO Q6H PRN GI (Reported) Escitalopram Oxalate (Lexapro) 10 MG TABLET 1 TAB PO DAILY MENTAL HEALTH ( Reported) Lamotrigine (Lamictal) 25 MG TABLET 1 TAB PO DAILY UNKNOWN (Reported) Magnesium Hydroxide (Milk Of Magnesia) 400 MG/5 ML ORAL.SUSP 30 ML PO Q3D PRN CONSTIPATION (Reported) Na Phos,M-B/Na Phos,Di-Ba (Fleet Enema) 19 GRAM-7 GRAM/118 ML ENEMA 1 E RC DAILY PRN CONSTIPATION (Reported) Naloxone HCl (Narcan) 4 MG/ACTUATION SPRAY 4 MG MORGAN AD PRN OPIOID INDUCED RESP. DEPRESSIO (Reported) Omeprazole 20 MG CAPSULE.DR 1 CAP PO DAILY GI (Reported) Pregabalin (Lyrica) 150 MG CAPSULE 1 CAP PO BID UNKNOWN (Reported) Sennosides (Senna) 8.6 MG TABLET 1 TAB PO DAILY GI (Reported) Trazodone HCl 50 MG TABLET 1 TAB PO PRN INSOMNIA (Reported) Venlafaxine HCl (Effexor XR) 150 MG CAP.ER.24H 1 CAP PO DAILY MENTAL HEALTH ( Reported) Zolpidem Tartrate (Zolpidem Tartrate ER) 12.5 MG TAB.MPHASE 1 TAB PO QHS SLEEP (Reported) Triage Note: PT BIBA S/P FALL OUT OF BED AND HIT HIS HEAD ON THE NIGHTSTAND. PT HAS HX OF CEREBAL PALSY. PT DENIES LOC AND GOT HIMSELF OFF GROUND INTO WHEELCHAIR. PT DENIES HEAD/NECK/BACK PAIN. LAC NOTED TO ABOVE RIGHT EYEBROW AND LAC TO BELOW RIGHT LOWER LID. STERI STRIPS ON LAC FROM EMS, LAC ARE BLEEDING SLIGHTLY STILL Triage Nurses Notes Reviewed? yes Onset: Abrupt Duration: hour(s): (1), constant, continues in ED Timing: single episode today Severity: mild, moderate Severity Numbers: 5 Injuries/Fall Location: head, face Method of Injury: fall Loss of Consciousness: no loss of consciousness No Modifying Factors: none HPI: 46-year-old male past medical history of cerebral palsy presents for evaluation after a fall. Patient was in bed this morning and was reaching for something on his nightstand when he fell out of bed hitting his left forehead and left face on the nightstand. He did not lose consciousness. He was able to get himself off the ground and into a wheelchair. No blood thinners no changes in vision no eye pain. No vomiting. Mental status is at baseline according to dad who is at bedside. Patient does not ambulate at baseline. He reports a laceration to the area above the right eyebrow and below the right periorbital area. He denies any pain to his neck head back chest abdomen pelvis or extremities. He is not taking any medicine for pain. (Jeffrey Iniguez) Past History Travel History Traveled to [place] past 21 day No Medical History Any Pertinent Medical History? see below for history Neurological: CEREBRAL ATAXIA EENT: NONE Cardiovascular: NONE Respiratory: NONE Gastrointestinal: esophagitis Hepatic: NONE Renal: NONE Musculoskeletal: MUSCULAR/FACIAL SPASMS Psychiatric: anxiety, depression Endocrine: NONE Blood Disorders: NONE Cancer(s): NONE COTTON FACTOR/Reproductive: NONE History of MRSA: No History of VRE: No History of CDIFF: No Tetanus Vaccine: 07/18/15 Surgical History Surgical History: non-contributory Psychosocial History Who do you live with Other (see notes) Services at Home None What is your primary language [place]ian Tobacco Use: Never used Family History Family History, If Any: Relation not specified for: No pertinent family history Hx Contributory? No (Jeffrey Iniguez) Review of Systems Review of Systems Constitutional: Reports: no symptoms. Eyes: Reports: no symptoms. Ears, Nose, Throat, Mouth: Reports: no symptoms. Respiratory: Reports: no symptoms. Cardiovascular: Reports: no symptoms. Gastrointestinal/Abdominal: Reports: no symptoms. Genitourinary: Reports: no symptoms. Musculoskeletal: Reports: no symptoms. Skin: Reports: see HPI (LACERATION). Neurological/Psychological: Reports: no symptoms. All Other Systems: Reviewed and Negative (Jeffrey Iniguez) Physical Exam Physical Exam General Appearance: well developed/nourished, no apparent distress, alert, awake Head: normal appearance, THERE IS A y-SHAPED LACERATION ON THE MEDIAL ASPECT OF THE RIGHT EYEBROW. tHERE IS ALSO ON A REGULAR CRESCENT-SHAPED LACERATION LOCATED ON THE INFERIOR LATERAL ASPECT OF THE RIGHT ORBIT. sMALL AMOUNT OF ACTIVE BLEEDING PRESENT EACH LACERATION ABOUT 17 M IN LENGTH. sUBCUTANEOUS TISSUE IS VISIBLE NO FOREIGN BODIES THERE IS SURROUNDING SOFT TISSUE SWELLING. tHERE IS RIGHT-SIDED PERIORBITAL TENDERNESS AND SWELLING NO BRUISING NO CREPITUS. Eyes: Bilateral: normal appearance, PERRL, EOMI, normal inspection. Ears, Nose, Throat, Mouth: hearing grossly normal, moist mucous membrane Neck: normal inspection, supple, full range of motion, no midline tenderness Respiratory: normal breath sounds, chest non-tender, no respiratory distress, lungs clear Cardiovascular: regular rate/rhythm, normal peripheral pulses Peripheral Pulses: 2+ radial (R), 2+ radial (L) Gastrointestinal: soft, non-tender Back: normal inspection, normal range of motion, no vertebral tenderness Extremities: normal range of motion, NO BRUISING SWELLING OR ABRASIONS TO THE BILATERAL HIPS KNEES AND ANKLES SHOULDERS ELBOWS OR WRISTS. pATIENT MOVING EXTREMITIES EQUALLY Neurologic/Psych: no motor/sensory deficits, awake, alert, oriented x 3 Skin: intact, normal color, warm/dry Core Measures ACS in differential dx? No CVA/TIA Diagnosis No Sepsis Present: No Sepsis Focused Exam Completed? No (Jeffrey Iniguez) Progress Differential Diagnosis: C/T/L spine injury, ext injury, ICH, pelvis injury, spinal cord injury, LACERATION, CONTUSION, ABRASION Diagnostic Imaging: Viewed by Me: CT Scan. Discussed w/RAD: CT Scan. Radiology Impression: PATIENT: ANDER ALAMO PRESENT AGE: 46 PATIENT ACCOUNT NO: [id number] : 72 LOCATION: [facility] ORDERING PHYSICIAN: Jamshid Hummel MD SERVICE DATE: 06/27/172432 EXAM TYPE: CAT - CT CERV SPINE WO IV CONTRAST; CT HEAD WO IV CONTRAST; CT MAXILLOFACIAL W/O CON EXAMINATION: CT HEAD WITHOUT CONTRAST CT FACIAL BONES WITHOUT CONTRAST CT CERVICAL SPINE WITHOUT CONTRAST CLINICAL INFORMATION: 46-year-old male, status post fall with head strike on a nightstand. COMPARISON: None. TECHNIQUE: Noncontrast CT scan of the head and facial bones, using standard protocol. Multiplanar reconstructed images are obtained. Multiplanar reconstructed images are also obtained. Multidetector helical imaging of the cervical spine was also performed in the axial plane with generation of coronal and sagittal reformatted images. DLP: 2013.35 mGy-cm. FINDINGS: CT OF THE HEAD: Prominent cerebellar folia is noted involving both lobes of the cerebellum, consistent with diffuse cerebellar atrophy, of uncertain etiology. The remainder of the brain parenchyma including the cerebrum and the brainstem appear unremarkable. Specifically, no evidence of intra-axial mass, mass effect, extra-axial fluid collection, midline shift, acute intraparenchymal hemorrhage and/or acute infarction present. Both orbital globes, extraocular muscles, optic nerves appear bilaterally symmetric and are unremarkable. The bilateral mastoid air cells appear unremarkable. CT OF THE FACIAL BONES: Evaluation is technically limited due to motion-related artifacts. Specific note is made of presence of artifacts around the nasal bones and the base of the mandibular region as well as the hyoid and thyroid cartilage region. The remainder of the facial bones including both orbits, the paranasal sinuses, the zygomatic process appear intact. The temporomandibular joints appear to be intact. Minimal soft tissue scalp thickening is noted overlying the right frontal region, may represent small hematoma without any underlying fracture. CT OF THE CERVICAL SPINE: The height, alignment of the cervical vertebrae is well maintained. The posterior appendages are intact. Intervertebral disc height is well maintained. The prespinal soft tissues are unremarkable. Both lung apices are clear. IMPRESSION: 1. The CT of the head shows no acute intracranial pathology. However, incidental note is made of prominent cerebellar folia involving both lobes of the cerebellum consistent with cerebellar diffuse atrophy, of uncertain etiology. Clinical correlation is recommended. 2. CT of the cervical spine shows no evidence of any fracture, subluxation or soft tissue hematoma. 3. Evaluation of the facial bones is technically limited due to motion-related artifacts. Specifically, evaluation of the nasal bones, the base of the mandible, thyroid cartilage as well as the hyoid bones is technically limited due to motion-related artifacts. The remainder of the visualized part of the face does not show any definite fracture. Subtle soft tissue thickening is noted overlying the right frontal region without any underlying fracture, may represent small soft tissue hematoma. DICTATED BY: Ajay Rojsa MD DATE/TIME DICTATED:06/27/171322 TAPING MACHINE OPERATOR:HORACIO DATE/TIME TRANSCRIBED:06/27/171322 CONFIDENTIAL, DO NOT COPY WITHOUT APPROPRIATE AUTHORIZATION. <Electronically signed in Other Vendor System> SIGNED BY: Ajay Rojas MD 06/27/17 1402 (Jeffrey Iniguez) Plan of Care: Current Medications Sig/Steve Start time Last Medication Dose Stop Time Status Admin Acetaminophen 1,000 MG ONCE ONE 06/27 1400 UNVr (Tylenol) 06/27 1401 Patient seen and evaluated. He suffered a mechanical fall this morning hitting his head on a nightstand. He has 2 lacerations to the right periorbital area. These were cleaned with sterile water and Betadine. 1% lidocaine without epi was used for local pain control. 6 5-0 nylon simple interrupted sutures were used to approximate the wounds. Patient tolerated well sterile dressing applied. Mental status is at baseline. CT scans were obtained do not show any signs of acute trauma. Discussed wound care procedures in detail. Change dressing was daily. Tylenol for pain. Make a follow-up with primary care doctor for wound check in a few days. Sutures removed in 5-7 days. Discussed return precautions including signs of head injury. Discussed concussion precautions patient agrees the plan (Jeffrey Iniguez) (Estephanie JOHNSON,Jamshid Deluna) Departure Departure Disposition: HOME OR SELF CARE Condition: Stable Clinical Impression Primary Impression: Facial laceration Qualifiers: Encounter type: initial encounter Qualified Code: S01.81XA - Laceration without foreign body of other part of head, initial encounter Secondary Impressions: Head injury Qualifiers: Encounter type: initial encounter Qualified Code: S09.90XA - Unspecified injury of head, initial encounter Referrals: Unknown (PCP/Family) Additional Instructions: Rest, keep the areas clean and dry apply ice for 15-20 minutes every few hours. Tylenol 1000 mg every 6 hours as needed for pain. Change dressing once daily. The sutures and cannot N5 to 7 days. He should HAve a wound check with her primary care doctor in 2-3 days. [place] for signs of infection like redness on discharge or pain. Also LOOK For signs of significant head injury including change in mental status, vomiting, seizures or any other concerns. Departure Forms: Customer Survey General Discharge Information (Jeffrey Iniguez) PA/HOLLOW WARE MAKER Co-Sign Statement Statement: ED Attending supervision documentation- [X] I saw and evaluated the patient. I have also reviewed all the pertinent lab results and diagnostic results. I agree with the findings and the plan of care as documented in the PA's/HOLLOW WARE MAKER's documentation. [] I have reviewed the ED Record and agree with the PA's/HOLLOW WARE MAKER's documentation. [] Additions or exceptions (if any) to the PAs/HOLLOW WARE MAKER's note and plan are summarized below: [] (Estephanie JOHNSON,Jamshid Deluna) Procedures Laceration/Wound Repair Laceration/Wound Repair: Wound Location: head, face (RT FOREHEAD/RT INFERIOR ORBIT) Wound's Depth, Shape: irregular, subcutaneous Wound Length (cm): 1 Wound Explored: clean, no foreign body removed, irrigated extensively Irrigated w/ Saline (ccs): 200 Betadine Prep? Yes Anesthesia: 1% lidocaine Volume Anesthetic (ccs): 5 Wound Debrided: minimal Wound Repaired With: sutures Suture Size/Type: 5:0, nylon Number of Sutures: 6 Layer Closure? No Sterile Dressing Applied: Yes Tetanus Status: up to date (Jeffrey Iniguez)
--- NOTE | 2017-06-27 14:02 | CT SCAN REPORT ---
EXAMINATION: CT HEAD WITHOUT CONTRAST CT FACIAL BONES WITHOUT CONTRAST CT CERVICAL SPINE WITHOUT CONTRAST CLINICAL INFORMATION: 46-year-old male, status post fall with head strike on a nightstand. COMPARISON: None. TECHNIQUE: Noncontrast CT scan of the head and facial bones, using standard protocol. Multiplanar reconstructed images are obtained. Multiplanar reconstructed images are also obtained. Multidetector helical imaging of the cervical spine was also performed in the axial plane with generation of coronal and sagittal reformatted images. DLP: 2013.35 mGy-cm. FINDINGS: CT OF THE HEAD: Prominent cerebellar folia is noted involving both lobes of the cerebellum, consistent with diffuse cerebellar atrophy, of uncertain etiology. The remainder of the brain parenchyma including the cerebrum and the brainstem appear unremarkable. Specifically, no evidence of intra-axial mass, mass effect, extra-axial fluid collection, midline shift, acute intraparenchymal hemorrhage and/or acute infarction present. Both orbital globes, extraocular muscles, optic nerves appear bilaterally symmetric and are unremarkable. The bilateral mastoid air cells appear unremarkable. CT OF THE FACIAL BONES: Evaluation is technically limited due to motion-related artifacts. Specific note is made of presence of artifacts around the nasal bones and the base of the mandibular region as well as the hyoid and thyroid cartilage region. The remainder of the facial bones including both orbits, the paranasal sinuses, the zygomatic process appear intact. The temporomandibular joints appear to be intact. Minimal soft tissue scalp thickening is noted overlying the right frontal region, may represent small hematoma without any underlying fracture. CT OF THE CERVICAL SPINE: The height, alignment of the cervical vertebrae is well maintained. The posterior appendages are intact. Intervertebral disc height is well maintained. The prespinal soft tissues are unremarkable. Both lung apices are clear. IMPRESSION: 1. The CT of the head shows no acute intracranial pathology. However, incidental note is made of prominent cerebellar folia involving both lobes of the cerebellum consistent with cerebellar diffuse atrophy, of uncertain etiology. Clinical correlation is recommended. 2. CT of the cervical spine shows no evidence of any fracture, subluxation or soft tissue hematoma. 3. Evaluation of the facial bones is technically limited due to motion-related artifacts. Specifically, evaluation of the nasal bones, the base of the mandible, thyroid cartilage as well as the hyoid bones is technically limited due to motion-related artifacts. The remainder of the visualized part of the face does not show any definite fracture. Subtle soft tissue thickening is noted overlying the right frontal region without any underlying fracture, may represent small soft tissue hematoma.
[2017-06-27 16:00] VITALS: BP 120/76
== END 2017-06-27 16:00 ==
LOC: ERH 10:42
DX: S01.81XA Laceration without foreign body of other part of head, initial encounter (principal); S09.90XA Unspecified injury of head, initial encounter; W06.XXXA Fall from bed, initial encounter; Y92.9 Unspecified place or not applicable; Y93.9 Activity, unspecified

== ENCOUNTER 2017-08-29 00:26 | Emergency (ER) | payer OTHER, MEDICARE ==
[~2017-08-29] VITALS: Ht 208.3 cm; Wt 99.8 kg
--- NOTE | 2017-08-29 00:35 | ED MVC/FALL/TRAUMA COMPLAINT ---
History of Present Illness General Chief Complaint: Fall Stated Complaint: FELL IN SHELTER. Source: patient Exam Limitations: no limitations Vital Signs & Intake/Output Vital Signs & Intake/Output Vital Signs Date Time Temp Pulse Resp B/P B/P Pulse O2 O2 Flow FiO2 Mean Ox Delivery Rate 08/29 0029 98.3 101 18 135/81 97 Room Air Allergies Coded Allergies: NO KNOWN ALLERGIES (05/06/16) Reconcile Medications Acetaminophen (Pain & Fever) 325 MG TABLET 2 TAB PO Q6H PAIN (Reported) Acetaminophen (Acephen) 650 MG SUPP.RECT 1 SUPP [place] Q6H PRN PAIN/TEMP>101 ( Reported) Acetaminophen (Mapap) 325 MG TABLET 2 TAB PO Q6H PRN PAIN/TEMP>101 (Reported) Bisacodyl (Dulcolax) 10 MG SUPP.RECT 1 SUP RC DAILY PRN CONSTIPATION ( Reported) Calcium Carbonate (Calcium) 500 MG CALCIUM (1,250 MG) TAB.CHEW 1 TAB PO Q6H PRN GI (Reported) Escitalopram Oxalate (Lexapro) 10 MG TABLET 1 TAB PO DAILY MENTAL HEALTH ( Reported) Lamotrigine (Lamictal) 25 MG TABLET 1 TAB PO DAILY UNKNOWN (Reported) Magnesium Hydroxide (Milk Of Magnesia) 400 MG/5 ML ORAL.SUSP 30 ML PO Q3D PRN CONSTIPATION (Reported) Na Phos,M-B/Na Phos,Di-Ba (Fleet Enema) 19 GRAM-7 GRAM/118 ML ENEMA 1 E RC DAILY PRN CONSTIPATION (Reported) Naloxone HCl (Narcan) 4 MG/ACTUATION SPRAY 4 MG MORGAN AD PRN OPIOID INDUCED RESP. DEPRESSIO (Reported) Omeprazole 20 MG CAPSULE.DR 1 CAP PO DAILY GI (Reported) Pregabalin (Lyrica) 150 MG CAPSULE 1 CAP PO BID UNKNOWN (Reported) Sennosides (Senna) 8.6 MG TABLET 1 TAB PO DAILY GI (Reported) Trazodone HCl 50 MG TABLET 1 TAB PO PRN INSOMNIA (Reported) Venlafaxine HCl (Effexor XR) 150 MG CAP.ER.24H 1 CAP PO DAILY MENTAL HEALTH ( Reported) Zolpidem Tartrate (Zolpidem Tartrate ER) 12.5 MG TAB.MPHASE 1 TAB PO QHS SLEEP (Reported) Triage Nurses Notes Reviewed? yes Onset: Abrupt Duration: minute(s): Timing: recent history Severity: moderate Injuries/Fall Location: head Method of Injury: fall Loss of Consciousness: no loss of consciousness Modifying Factors: Improves With: rest. Associated Symptoms: swelling of occiput HPI: 47 yo gentleman h/o cerebellar ataxia, presents after a fall where he was walking with a walker at his [facility]. He notes, "I fall a lot." He hit his head, did not lose consciousness. He notes no other injury. Past History Travel History Traveled to [place] past 21 day No Medical History Any Pertinent Medical History? see below for history Neurological: CEREBRAL ATAXIA EENT: NONE Cardiovascular: NONE Respiratory: NONE Gastrointestinal: esophagitis Hepatic: NONE Renal: NONE Musculoskeletal: MUSCULAR/FACIAL SPASMS Psychiatric: anxiety, depression Endocrine: NONE Blood Disorders: NONE Cancer(s): NONE OVEN DAUBER/Reproductive: NONE History of MRSA: No History of VRE: No History of CDIFF: No Tetanus Vaccine: 07/18/15 Surgical History Surgical History: non-contributory Psychosocial History Who do you live with Other (see notes) Services at Home None What is your primary language [place] Tobacco Use: Never used Family History Family History, If Any: Relation not specified for: No pertinent family history Hx Contributory? No Review of Systems Review of Systems Constitutional: Denies: see HPI. Physical Exam Physical Exam General Appearance: well developed/nourished, mild distress Head: occiput with mild ecchymosis and diffuse swelling 6x6cn, no focal bony tenderness. Comments: Review of Systems - except as otherwise noted in HPI Review of Systems Constitutional:no symptoms. EENTM:no symptoms. Respiratory:no symptoms. Cardiovascular:no symptoms. GI:no symptoms. Genitourinary:no symptoms. Musculoskeletal:no symptoms. Skin:no symptoms. Neurological/Psychological:no symptoms. Hematologic/Endocrine:no symptoms. Immunologic/Allergic:no symptoms. All Other Systems: Reviewed and Negative Physical Exam Physical Exam General Appearance: well developed/nourished, mild distress Head: atraumatic, normal appearance, Eyes: Bilateral: normal appearance. Ears, Nose, Throat: normal pharynx, normal ENT inspection Neck: normal inspection, supple, full range of motion Respiratory: normal breath sounds, chest non-tender, no respiratory distress, quiet respiration, lungs clear Cardiovascular: regular rate/rhythm Gastrointestinal: normal bowel sounds, soft, non-tender, no organomegaly Back: normal inspection, normal range of motion Extremities: normal inspection, normal capillary refill, normal range of motion, no edema. no focal bony tenderness Neurologic/Psych: , awake, alert, ataxic movement of upper and lower extremities , Skin: intact, normal color, warm/dry Core Measures ACS in differential dx? No CVA/TIA Diagnosis No Sepsis Present: No Sepsis Focused Exam Completed? No Progress Differential Diagnosis: ICH Plan of Care: Current Medications Sig/Steve Start time Last Medication Dose Stop Time Status Admin Ibuprofen 800 MG ONCE ONE 08/29 229 UNVr (Motrin) 08/29 230 Diagnostic Imaging: Viewed by Me: CT Scan. Discussed w/RAD: CT Scan. Radiology Impression: PATIENT: ANDER ALAMO PRESENT AGE: 47 PATIENT ACCOUNT NO: [id number] : 72 LOCATION: [facility] ORDERING PHYSICIAN: Martin Perez MD SERVICE DATE: 08/29/17 EXAM TYPE: CAT - CT CERV SPINE WO IV CONTRAST; CT HEAD WO IV CONTRAST EXAMINATION: NONCONTRAST HEAD CT NONCONTRAST CERVICAL SPINE CT INDICATION INFORMATION: Fall, head injury COMPARISON: 06/27/2017 TECHNIQUE: Separate noncontrast CT examinations of the head and cervical spine were performed. Coronal head CT images and coronal and sagittal cervical spine images were created at the technologist workstation. DLP: 714.26, 411.03 mGy-cm FINDINGS: Head: There is no evidence of acute intracranial hemorrhage or territorial infarction. No abnormal mass-effect or midline shift is seen. Reed to white matter differentiation is well preserved. No extra-axial fluid collections are identified. The ventricles are normal in size. Cerebellar atrophy is again noted. No acute fracture seen. There is right parietal scalp soft tissue swelling. The mastoid air cells and visualized portions of the paranasal sinuses are well-aerated. Cervical spine: There is anatomic alignment of the vertebral bodies and posterior elements. There is degenerative change at the atlantodens articulation. Vertebral body heights and intervertebral disc spaces are maintained. No evidence of acute fracture. No prevertebral soft tissue swelling. Visualized portions of the lung apices are unremarkable. The thyroid gland is unremarkable. IMPRESSION: 1. Head : Right parietal scalp soft tissue swelling. No acute intracranial findings. Redemonstrated cerebellar atrophy. 2. Cervical spine: No acute findings identified. DICTATED BY: Sen Anand MD DATE/TIME DICTATED:08/29/17203 FREIGHT CONDUCTOR:HORACIO DATE/TIME TRANSCRIBED:08/29/17203 CONFIDENTIAL, DO NOT COPY WITHOUT APPROPRIATE AUTHORIZATION. <Electronically signed in Other Vendor System> SIGNED BY: Sen Anand MD 08/29/17214 Departure Departure Disposition: HOME OR SELF CARE Condition: Stable Clinical Impression Primary Impression: Head injury Secondary Impressions: Contusion, Hematoma Referrals: Rico Ross MD (PCP/Family) Departure Forms: Customer Survey General Discharge Information Comments 08/29/17, 2:25am.. pt feeling better after resting, discussed ct results, pt safe for discharge.
--- NOTE | 2017-08-29 02:15 | CT SCAN REPORT ---
EXAMINATION: NONCONTRAST HEAD CT NONCONTRAST CERVICAL SPINE CT INDICATION INFORMATION: Fall, head injury COMPARISON: 06/27/2017 TECHNIQUE: Separate noncontrast CT examinations of the head and cervical spine were performed. Coronal head CT images and coronal and sagittal cervical spine images were created at the technologist workstation. DLP: 714.26, 411.03 mGy-cm FINDINGS: Head: There is no evidence of acute intracranial hemorrhage or territorial infarction. No abnormal mass-effect or midline shift is seen. Reed to white matter differentiation is well preserved. No extra-axial fluid collections are identified. The ventricles are normal in size. Cerebellar atrophy is again noted. No acute fracture seen. There is right parietal scalp soft tissue swelling. The mastoid air cells and visualized portions of the paranasal sinuses are well-aerated. Cervical spine: There is anatomic alignment of the vertebral bodies and posterior elements. There is degenerative change at the atlantodens articulation. Vertebral body heights and intervertebral disc spaces are maintained. No evidence of acute fracture. No prevertebral soft tissue swelling. Visualized portions of the lung apices are unremarkable. The thyroid gland is unremarkable. IMPRESSION: 1. Head: Right parietal scalp soft tissue swelling. No acute intracranial findings. Redemonstrated cerebellar atrophy. 2. Cervical spine: No acute findings identified.
[2017-08-29 02:39] VITALS: BP 122/83
== END 2017-08-29 02:41 ==
LOC: ERH 00:26
DX: S09.90XA Unspecified injury of head, initial encounter (principal); T14.8XXA Other injury of unspecified body region, initial encounter; W19.XXXA Unspecified fall, initial encounter; Y92.129 Unspecified place in nursing home as the place of occurrence of the external cause; Y93.01 Activity, walking, marching and hiking